=== PATIENT | female | born 2000 ===

== ENCOUNTER 2023-08-16 21:47 | Outpatient (REF) | payer OTHER, SELFPAY ==
--- OUTSIDE RECORDS SUMMARY | 2023-08-17 10:16 | XMS_ITS | CCD ---
Author Name Unknown Address [address] [place] [address] Organization [facility] Care Team Providers Care Medical Claims Manager Name Role Phone JUANS, DR SUMNER Admitting Unavailable TIMMIS, DR SUMNER Attending Unavailable TIMMIS, DR SUMNER Consulting Unavailable ZIEBER, DR DAGOBERTO Mcclain Consulting Unavailable TIMMIS, DR SUMNER Attending Unavailable TIMMIS, DR SUMNER Consulting Unavailable TIMMIS, DR SUMNER Admitting Unavailable WEST, DR JEANETTE Sy Consulting Unavailable Sg Bower Unavailable Unavailable Unavailable SHANTELLE MAE Attending Unavailable SELF, SELF Referring Unavailable DO Sg Bower Primary Care Provider MD Jaylan Salazar Attending Provider DO Sg Bower Primary Care Provider [phone] MD Derrick Kimbrough Attending Provider Jaylan Salazar Admitting Unavailable Jaylan Salazar Attending Unavailable Sg Bower Primary Care Unavailable Sg Bower Primary Care Unavailable Derrick Kimbrough Admitting Unavailable Derrick Kimbrough Attending Unavailable Allergies Allergy Classification Reported Allergen(s) Allergy Type Date of Onset Reaction(s) Facility Pollen (5 sources) bee pollen Substance Allergy [facility] Work Phone: (2 sources) bee pollen Allergy to substance (finding) [facility] Work Phone: (1 source) Unable to Assess Drug allergy (disorder) 01-11-2021 [facility] Rep[facility] Medications Completed/Discontinued Medications Medication Drug Class(es) Dates Sig (Normalized) Sig (Original) cefdinir 300 mg oral capsule (1 source) Cephalosporin Antibacterial Start: 11-25-2020 End: 02-26-2021 take 1 capsule by mouth twice daily Cefdinir 300 MG Oral Capsule TAKE 1 CAPSULE BY MOUTH TWO TIMES A DAY FOR 10 DAYS Quantity: 20 Refills: 0 Ordered: 25-Nov-2020 DO Start : 25-Nov-2020 End : 26-Feb-2021 Complete cephalexin 500 mg oral capsule (2 sources) Cephalosporin Antibacterial Start: 03-18-2021 End: 04-09-2021 take 1 capsule by mouth three times daily Cephalexin 500 MG Oral Capsule take 1 capsule by mouth three times a day for 7 days Quantity: 21 Refills: 0 Ordered: 18-Mar-2021 DO Start : 18-Mar-2021 End : 09-Apr-2021 Complete predniSONE 10 mg oral tablet (4 sources) Start: 03-20-2021 End: 04-09-2021 predniSONE 10 MG Oral Tablet TAKE 3 TABLETS FOR 3 DAYS, 2 TABLETS FOR 3 DAYS, 1 TABLET FOR 4 DAYS AND THEN STOP Quantity: 19 Refills: 0 Ordered: 20-Mar-2021 Jaylan Salazar MD Start : 20-Mar-2021 End : 09-Apr-2021 Complete Start: 11-25-2020 End: 02-26-2021 take 1 tablet by mouth twice daily predniSONE 20 MG Oral Tablet TAKE 1 TABLET BY MOUTH TWO TIMES A DAY FOR 6 DAYS Quantity: 12 Refills: 0 Ordered: 25-Nov-2020 DO Start : 25-Nov-2020 End : 26-Feb-2021 Complete Sprintec 28 0.25-35 MG-MCG Oral Tablet (7 sources) Start: 01-12-2021 Sprintec 28 0.25-35 MG-MCG Oral Tablet Quantity: 84 Refills: 0 Ordered: 12-Jan-2021 DO Start : 12-Jan-2021 Active traMADol hydrochloride 50 mg oral tablet (2 sources) Opioid Agonist Start: 03-18-2021 End: 04-09-2021 take 1 tablet by mouth every six hours as needed for pain traMADol HCl - 50 MG Oral Tablet TAKE 1 TABLET BY MOUTH EVERY SIX HOURS NEEDED FOR PAIN Quantity: 28 Refills: 0 Ordered: 18-Mar-2021 DO Start : 18-Mar-2021 End : 09-Apr-2021 Complete Problems Active Problems Problem Classification Problem Date Documented Da te Episodic/Chronic Genitourinary symptoms and ill-defined conditions (7 sources) H/O: kidney disease; Translations: [Personal history of other specified urinary system disorders] Episodic Other connective tissue disease (5 sources) Weakness of face muscles; Translations: [Facial weakness] Episodic Other hematologic conditions (7 sources) History of anemia; Translations: [Personal history of diseases of blood and blood-forming organs] Episodic Residual codes; unclassified (7 sources) H/O: respiratory disease; Translations: [Other specified personal history presenting hazards to health] Episodic Unclassified (1 source) K11.8 - Other diseases of salivary glands; Translations: [K11.8 - Other diseases of salivary glands] Onset: 03-07-2022 Past or Other Problems Problem Classification Problem Date Documented Da te Episodic/Chronic Diseases of mouth; excluding dental (12 sources) Other diseases of salivary glands; Translations: [Mass of parotid gland] Onset: 02-09-2021 Episodic Results Test Name Value Interpretation Reference Range Facility Chromosome Leuk Blood Analys cherri 09-01-2022 Chromosome Leuk Blood Normal [facility] Comment on above: Order Comment: Reaso n for Exam Family history of chromosomal abnormality Result Comment: See report. Scanned copy available in EMR. PERFORMED BY: [place] [address] PATHOLOGIST SUPERVISOR [employer] MIMI SERRANO M.D. Performed By: #### C HROM LEUK #### [facility] , CT soft tissue neck w conon 03-07-2022 CT soft tissue neck w [facility] [place] [address] CT Scan Report Signed Patient: Divya Garay MR#: [id number] 1 : 2000 Acct:[id number] Age/Sex: 22 / F ADM Date: 03/07/22 Loc: CT Room: Type: [facility] Attending Dr: Jaylan Salazar MD Copies to: Jaylan Salazar MD Ordering Provider: Jaylan Salazar MD Date of Service: 03/07/22 CT/CT soft tissue neck w con: K11.8 CT neck with contrast TECHNIQUE: Axial imaging with 2-D reconstruction. 90cc of Isovue-[address] exam was performed using one or more the following dose reduction techniques: Automated exposure control, adjustment of the MA and/or Kv according to patient size, or use of the iterative reconstruction technique. HISTORY: Follow-up of parotid mass removal one year ago. No tongue lesion is identified. The hard and soft palate are unremarkable. The nasopharynx, oropharynx and hypopharynx are unremarkable. The epiglottis is normal. No laryngeal abnormality seen. No perivertebral space abnormality identified. No parapharyngeal space abnormality identified. No vascular abnormality identified. Small jugular lymph nodes identified. Recess changes of the RIGHT parotid identified. No recurrence present. No thyroid nodule identified. CT/CT soft tissue neck w con IMPRESSION: Unremarkable postsurgical changes of the RIGHT parotid. No recurrence. No adenopathy. Impression dictated by: Warren Julian M.D.03/07/2022 4:13 PM Dictation Location: [place] [address] Transcribed By: [facility] 03/07/22 1613 Dictated By: Warren Julian DO 03/07/22 1609 Signed By: 03/07/22 1613 [facility] Established Visit (Otolaryng ology)on 02-25-2022 Established Visit (Otolaryngology) Diagnoses/Problems Parotid mass (527.8) (K11.8) Orders Blood Urea Nitrogen, Serum; Status:Active; Requested for:[id number]; Creatinine, Serum; Status:Active; Requested for:[id number]; CT Neck with Contrast; Status:Hold For - Scheduling; Requested for:[id number]; Patient taking Metformin or Derivatives? : Unknown Radiologist to Determine Optimal Study : Y What are the patient's signs and symptoms? : re-evaluate for right parotid mass Provider Impressions 22-year-old female with history of right parotid mass status post parotidectomy and fat graft. 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 Genetic testing was sent and was negative -We will get a CT scan of the neck to reassess for any mass in the surgical bed and to serve as a comparison for future scans. She will get this done locally and we will review when available Chief Complaint Follow-up History of Present IllnessPatient had a right parotidectomy on 03/18/21 Final pathology was consistent with pleomorphic adenoma. There was some in the center of the tumor that were concerning for possible mucoepidermoid carcinoma. Genetic testing was sent and was negative Patient returns for follow-up. She has not had any issues since her last visit. She has regained some sensation in her ear. She is overall doing well Review of Systems ENT and Constitutional systems have been reviewed and are negative for complaint except what is stated in the HPI and/or Past Medical History. Active Problems Facial weakness (781.94) (R29.810) Parotid mass (527.8) (K11.8) Past Medical History History of anemia (V12.3) (Z86.2) History of kidney disease (V13.09) (Z87.448) History of snoring (V15.89) (Z87.898) Surgical History No history of surgery Family History Family history of Alive and well Family history of Alive and well Social History Employed Lives with family Single Student Allergies No Known Drug Allergies Recorded By: Margarita Pop; 02/26/2021 3:22:30 PM Pollen Recorded By: Margarita Pop; 02/26/2021 3:22:30 PM Current Meds Medication NameInstruction Sprintec 28 0.25-35 MG-MCG Oral Tablet Vitals Vital Signs Recorded: [id number] 04:15PM Lqeuwaoezqu55.9 F Height5 ft 8 in Tcucnt206 lb 8 oz BMI Ohexxvjbvs62.32 kg/m2 BSA Calculated1.89 Tobacco Useb) No Falls Screening (Age 18+)b) One or more falls in the last year Pain Scale0/10 Physical Exam Well appearing individual in no acute distress. No stertor and no Stridor. Good voice. No LAD. Skin is soft and supple. Oral cavity and oropharynx are without lesions. No thyromegaly. Anterior rhinoscopy reveals normal nasal mucosa bilaterally. EAC normal AU with PRADEEP. Cranial Nerves grossly intact. Right face neck incision well-healed Results/Data Pathology 03/18: Pleomorphic adenoma, 1 lymph node negative for malignancy. In the central portion of the lesion the area of squamous metaplasia with cystic changes raises the possibility of intracapsular mucoepidermoid carcinoma. This was sent for genetic testing which returned as negative. 'Scores and Scales' Signatures Electronically signed by : Jaylan Salazar MD; Feb 28 2022 6:31AM EST (Author) Normal [employer] Tobacco Screening.on 022 Fall risk assessment b) One or more falls in the last year MG-Otolaryngo logy-[employer]* Work Phone: Tobacco use status CPHS b) No [employer]-Otolaryngo logMyshaadi.in-[employer]* Work Phone: Established Visit (Otolaryng ology)on 04-09-2021 Established Visit (Otolaryngology) Diagnoses/Problems Parotid mass (527.8) (K11.8) Provider Impressions 21-year-old female status post superficial parotidectomy and fat graft reconstruction. She had delayed onset facial weakness and was started on steroids-now resolved. Purulence from abdominal incision likely stitch abscess does not appear infected today. Discussed pathology findings with patient. Explained that even if was small foci of carcinoma it was central within the lesion and excised fully. Discussed that if she were ever to feel a mass in her neck in the future would need to arrange for evaluation given these findings. Does not necessarily need repeat imaging in the future unless there would be an area of a concern. Explained importance of self exams in the area. Recommended sunscreen to incision daily to prevent hyperpigmentation of scar. Recommended follow-up in 1 year. I personally spoke with and examined the patient. I agree with the assessment and plan. Jaylan Salazar MD Chief Complaint postop History of Present IllnessPatient had a right parotidectomy on 03/18. Postoperatively she had complete facial nerve function. On postop day 1 she noticed some slight weakness around her mouth and on postop day 2 she has some weakness around her eye. She can still close her eye. A high-dose steroid taper was sent in which she completed She states that her weakness has nearly resolved with some mild asymmetry in her smile. It completely improved almost immediately once the drain was removed and she is started on steroids. She states that on her flight back from [place] her abdominal incision started to become painful. Purulent material was expressed from the wound however it has not drained since. She is no longer have any redness or pain in the area. 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 There was some in the center of the tumor that were concerning for possible mucoepidermoid carcinoma. Genetic testing was sent and was negative Review of Systems ENT and Constitutional systems have been reviewed and are negative for complaint except what is stated in the HPI and/or Past Medical History. Active Problems Facial weakness (781.94) (R29.810) Parotid mass (527.8) (K11.8) Past Medical History History of anemia (V12.3) (Z86.2) History of kidney disease (V13.09) (Z87.448) History of snoring (V15.89) (Z87.898) Surgical History No history of surgery Family History Family history of Alive and well Family history of Alive and well Social History Employed Lives with family Single Student Allergies No Known Drug Allergies Recorded By: Margarita Pop; 02/26/2021 3:22:30 PM Pollen Recorded By: Margarita Pop; 02/26/2021 3:22:30 PM Current Meds Medication NameInstruction Sprintec 28 0.25-35 MG-MCG Oral Tablet Vitals Vital Signs Recorded: [id number] 04:44PM Jqkdvnzshsk41.6 F Height5 ft 8 in 2-20 Stature Yytfmhzebb84 % Ezkfuh022 lb 2-20 Weight Pvviindylz07 % BMI Eofbkiucen58.87 kg/m2 BMI Enuiyjwpuv60 % BSA Calculated1.84 Tobacco Useb) No Fall Screeninga) No falls within the last year Pain Scale0/10 Physical Exam incision well approximated, no sign of infection ubtle marginal mandibular nerve weakness Abdominal incision without erythema or evidence of fluid collection, healing appropriately Results/Data Surgical [id number] 01:46PMJaylan Salazar Test NameResultFlagReference Case Surgical Pathology(Report) Name DIVYA GARAY Pathologist: FERN LBACK MD Date of Procedure: 03/18/2021 Date Received: 03/18/2021 Date Reported 04/08/2021 Submitting Physician: JAYLAN SALAZAR MD Location: Other External # FINAL DIAGNOSIS RIGHT PAROTID MASS, PAROTIDECTOMY: --PLEOMORPHIC ADENOMA. SEE NOTE. --1 LYMPH NODE WITH NO EVIDENCE OF MALIGNANCY. 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 Because of this finding, the specimen was sent to [facility] for MAML2 translocation testing by FISH. Per their report (on file in the [facility] Department of Pathology), MAML2 FISH studies are negative for translocation, but results should be interpreted with caution due to the high rate of monosomy. While this finding does not entirely excluded mucoepidermoid carcinoma, the overall morphologic features and negative MAML2 results favor benign/reactive changes within the pleomorphic adenoma. The neoplasm extends within less than 1 mm of the inked margin in multiple foci, however, does not appear transected in the planes of section examined. Staff Consultants: Dr. Ghada Mohr, Dr. Francisca Shook, and Dr. Marty thompson The gross and/or microscopic findings were reviewed in conjunction with pathology resident, Mey Pena MD. Electronically Signed Out By FERN BLACK MD/KENN By the signature on this report, the individual or group listed as making the Final Interpretatio (more content not included)... Normal [employer] Tobacco Screening.on 021 Fall risk assessment a) No falls within the last year MG-Otolaryngo logy-[employer]* Work Phone: Tobacco use status [facility] b) No [employer]-Otolaryngo logy-[employer]* Work Phone: Established Visit (Otolaryng ology)on 03-21-2021 Established Visit (Otolaryngology) Diagnoses/Problems Parotid mass (527.8) (K11.8) Facial weakness (781.94) (R29.810) Provider Impressions 21-year-old female status post superficial parotidectomy and fat graft reconstruction. She had delayed onset facial weakness and was started on steroids. We discussed the expected prognosis which would be full facial nerve recovery with the majority of people recovering within 6 weeks. She will take her steroids as prescribed. She will follow up in a few weeks Chief Complaint drain removal History of Present IllnessPatient presents for drain removal.. Postoperatively she had complete pain shoulder function. On postop day 1 she noticed some slight weakness around her mouth and on postop day 2 she has some weakness around her eye. She can still close her eye. A high-dose steroid taper was sent in and she started that this morning. She has not had any other issues Review of Systems ENT and Constitutional systems have been reviewed and are negative for complaint except what is stated in the HPI and/or Past Medical History. Active Problems Facial weakness (781.94) (R29.810) Parotid mass (527.8) (K11.8) Past Medical History History of anemia (V12.3) (Z86.2) History of kidney disease (V13.09) (Z87.448) History of snoring (V15.89) (Z87.898) Surgical History No history of surgery Family History Family history of Alive and well Family history of Alive and well Social History Employed Lives with family Single Student Allergies No Known Drug Allergies Recorded By: Margarita Pop; 02/26/2021 3:22:30 PM Pollen Recorded By: Margarita Pop; 02/26/2021 3:22:30 PM Current Meds Medication NameInstruction predniSONE 10 MG Oral TabletTAKE 3 TABLETS FOR 3 DAYS, 2 TABLETS FOR 3 DAYS, 1 TABLET FOR 4 DAYS AND THEN STOP Sprintec 28 0.25-35 MG-MCG Oral Tablet Physical Exam drain removed incision well approximated, no sign of infection 3/6 facial weakness, regular 'Scores and Scales' Signatures Electronically signed by : Jaylan Salazar MD; Mar 21 2021 1:25PM EST (Author) Normal [employer] CBC AND DIFFERENTIALon 03-18 % AUTOMATED IMMATURE GRAN 0.2 % Normal 0.0 - 0.9 [facility] Comment on above: Result Comment: Luanne ture Granulocyte Count (IG) includes promyelocytes, myelocytes and metamyelocytes but does not include bands. Percent differential counts (%) should be interpreted in the context of the absolute cell counts (cells/L). Performed By: #### C BCDF #### [facility] [address] [place] [address] Basophils (Bld) [#/Vol] 0.02 10*3/uL Normal 0.00 - 0.10 [facility] Comment on above: Performed By: #### C BCDF #### [address] [address] Basophils/100 WBC (Bld) 0.3 % Normal 0.0 - 2.0 [facility] Comment on above: Performed By: #### C BCDF #### [address] [address] Eosinophils (Bld) [#/Vol] 0.09 10*3/uL Normal 0.00 - 0.70 [facility] Comment on above: Performed By: #### C BCDF #### [address] [address] Eosinophils/100 WBC (Bld) 1.5 % Normal 0.0 - 6.0 [facility] Comment on above: Performed By: #### C BCDF #### [address] [address] Erythrocyte distribution width (RBC) [Ratio] 12.7 % Normal 11.5 - 14.5 [facility] Comment on above: Performed By: #### C BCDF #### [address] [address] Hematocrit (Bld) [Volume fraction] 38.8 % Normal 36.0 - 46.0 [facility] Comment on above: Performed By: #### C BCDF #### [address] [address] Hemoglobin (Bld) [Mass/Vol] 12.8 g/dL Normal 12.0 - 16.0 [facility] Comment on above: Performed By: #### C BCDF #### [address] [address] Lymphocytes (Bld) [#/Vol] 2.13 10*3/uL Normal 1.20 - 4.80 [facility] Comment on above: Performed By: #### C BCDF #### [address] [address] Lymphocytes/100 WBC (Bld) 35.6 % Normal 13.0 - 44.0 [facility] Comment on above: Performed By: #### C BCDF #### [address] [address] MCHC (RBC) [Mass/Vol] 33.0 g/dL Normal 32.0 - 36.0 [facility] Comment on above: Performed By: #### C BCDF #### [address] [address] MCV (RBC) [Entitic vol] 90 fL Normal 80 - 100 [facility] Comment on above: Performed By: #### C BCDF #### [address] [address] Monocytes (Bld) [#/Vol] 0.72 10*3/uL Normal 0.10 - 1.00 [facility] Comment on above: Performed By: #### C BCDF #### [address] [address] Monocytes/100 WBC (Bld) 12.0 % Normal 2.0 - 10.0 [facility] Comment on above: Performed By: #### C BCDF #### [address] [address] Neutrophils (Bld) [#/Vol] 3.01 10*3/uL Normal 1.20 - 7.70 [facility] Comment on above: Performed By: #### C BCDF #### [address] [address] Neutrophils/100 WBC (Bld) 50.4 % Normal 40.0 - 80.0 [facility] Comment on above: Performed By: #### C BCDF #### [address] [address] NUCLEATED RBC 0.0 /100 WBC Normal 0.0 - 0.0 [facility] Comment on above: Performed By: #### C BCDF #### [address] [address] Platelets (Bld) [#/Vol] 306 10*3/uL Normal 150 - 450 [facility] Comment on above: Performed By: #### C BCDF #### [address] [address] RBC 4.31 x10E12/L Normal 4.00 - 5.20 [facility] Comment on above: Performed By: #### C BCDF #### [address] [address] WBC (Bld) [#/Vol] 6.0 10*3/uL Normal 4.4 - 11.3 [facility] Comment on above: Performed By: #### C BCDF #### [address] [address] COMPREHENSIVE PANELon 2020 Albumin [Mass/Vol] 4.2 g/dL Normal 3.4 - 5.0 [facility] Comment on above: Performed By: #### C MP #### [address] [address] ALP [Catalytic activity/Vol] 72 U/L Normal 33 - 110 [facility] Comment on above: Performed By: #### C MP #### [address] [address] ALT [Catalytic activity/Vol] 7 U/L Normal 7 - 45 [facility] Comment on above: Result Comment: Loretta ents treated with Sulfasalazine may generate falsely decreased results for ALT. Performed By: #### C MP #### [address] [address] Anion gap [Moles/Vol] 10 mmol/L Normal 10 - 20 [facility] Comment on above: Performed By: #### C MP #### [address] [address] AST [Catalytic activity/Vol] 12 U/L Normal 9 - 39 [facility] Comment on above: Performed By: #### C MP #### [address] [address] Bilirubin [Mass/Vol] 0.4 mg/dL Normal 0.0 - 1.2 [facility] Comment on above: Performed By: #### C MP #### [address] [address] Calcium [Mass/Vol] 9.5 mg/dL Normal 8.6 - 10.3 [facility] Comment on above: Performed By: #### C MP #### [address] [address] Chloride [Moles/Vol] 104 mmol/L Normal 98 - 107 [facility] Comment on above: Performed By: #### C MP #### [address] [address] Creatinine [Mass/Vol] 0.76 mg/dL Normal 0.50 - 1.05 [facility] Comment on above: Performed By: #### C MP #### [address] [address] GFR- AM. >60 Normal >60 [facility] Comment on above: Result Comment: CALC ULATIONS OF ESTIMATED GFR ARE PERFORMED USING THE MDRD STUDY EQUATION FOR THE IDMS-TRACEABLE CREATININE METHODS. CLIN CHEM 2007;53:766-72 Performed By: #### C MP #### [address] [address] GFR-NON AM. >60 Normal >60 [facility] Comment on above: Performed By: #### C MP #### [address] [address] Glucose [Mass/Vol] 92 mg/dL Normal 74 - 99 [facility] Comment on above: Performed By: #### C MP #### [address] [address] HCO3 (Bld) [Moles/Vol] 28 mmol/L Normal 21 - 32 [facility] Comment on above: Performed By: #### C MP #### [address] [address] Potassium [Moles/Vol] 4.1 mmol/L Normal 3.5 - 5.3 [facility] Comment on above: Performed By: #### C MP #### [address] [address] Protein [Mass/Vol] 6.8 g/dL Normal 6.4 - 8.2 [facility] Comment on above: Performed By: #### C MP #### [address] [place] [address] Sodium [Moles/Vol] 138 mmol/L Normal 136 - 145 [facility] Comment on above: Performed By: #### C MP #### [address] [place] [address] Urea nitrogen [Mass/Vol] 15 mg/dL Normal 6 - 23 [facility] Comment on above: Performed By: #### C MP #### [address] [place] [address] Complete Blood Count + Diffe sourav 03-18-2021 Basophils/100 WBC (Bld) 0.3 % 0.0 - 2.0 [employer] Work Phone: Erythrocyte distribution width (RBC) [Ratio] 12.7 % See Below [employer] Work Phone: Comment on above: Reference Range: 11. 5 - 14.5 Hematocrit (Bld) [Volume fraction] 38.8 % See Below [employer] Work Phone: Comment on above: Reference Range: 36. 0 - 46.0 Hemoglobin (Bld) [Mass/Vol] 12.8 g/dL See Below [employer] Work Phone: Comment on above: Reference Range: 12. 0 - 16.0 Lymphocytes/100 WBC (Bld) 35.6 % See Below [facility] Work Phone: Comment on above: Reference Range: 13. 0 - 44.0 MCHC (RBC) [Mass/Vol] 33.0 g/dL See Below [facility] Work Phone: Comment on above: Reference Range: 32. 0 - 36.0 MCV (RBC) [Entitic vol] 90 fL 80 - 100 [employer] Work Phone: Monocytes/100 WBC (Bld) 12.0 % 2.0 - 10.0 [facility]Otolaryngo [employer] Work Phone: Neutrophils/100 WBC (Bld) 50.4 % See Below [facility]Otolaryng[facility] [employer] Work Phone: Comment on above: Reference Range: 40. 0 - 80.0 Platelets (Bld) [#/Vol] 306 10*3/uL 150 - 450 [facility]Otolaryng[facility] [employer] Work Phone: RBC (Bld) [#/Vol] 4.31 {x10E12/L} See Below [facility] -Otolaryngo [employer] Work Phone: Comment on above: Reference Range: 4.0 0 - 5.20 WBC (Bld) [#/Vol] 6.0 10*3/uL 4.4 - 11.3 MG-Mitul laryngo [employer] Work Phone: Complete Blood Count + Differential 0.02 {x10E9/L} See Below [facility]Otol[facility] [employer] Work Phone: Comment on above: Reference Range: 0.0 0 - 0.10 Complete Blood Count + Differential 0.09 {x10E9/L} See Below [facility]Otol[facility] [employer] Work Phone: Comment on above: Reference Range: 0.0 0 - 0.70 Complete Blood Count + Differential 0.72 {x10E9/L} See Below [facility]Otol[facility] [employer] Work Phone: Comment on above: Reference Range: 0.1 0 - 1.00 Complete Blood Count + Differential 2.13 {x10E9/L} See Below [facility]Otolaryng[facility] [employer] Work Phone: Comment on above: Reference Range: 1.2 0 - 4.80 Complete Blood Count + Differential 3.01 {x10E9/L} See Below MG-Otolaryngo [employer] Work Phone: Comment on above: Reference Range: 1.2 0 - 7.70 Complete Blood Count + Differential 1.5 % 0.0 - 6.0 MG-Otolaryngo [employer] Work Phone: Complete Blood Count + Differential 0.2 % 0.0 - 0.9 [employer]OtolarynOmmvenStrobe Work Phone: Comment on above: Immature Granulocyte Count (IG) includes promyelocytes, myelocytes and metamyelocytes but does not include bands. Percent differential counts (%) should be interpreted in the context of the absolute cell counts (cells/L). Complete Blood Count + Differential 0.0 {/100_WBC} 0.0 - 0.0 MG-Otolaryn [employer] Work Phone: HCG,URINEon 03-18-2021 Beta HCG ( test) Ql (U) Negative Normal Negative [facility] Comment on above: Performed By: #### H CGU #### [facility] [address] [place] [address] Laboratory - Chemistry and C hemistry - challengeon 03-18-2021 Albumin BCP dye [Mass/Vol] 4.2 g/dL 3.4 - 5.0 [facility]-[place] EnterprisesspiritwoodMithridion [employer] Work Phone: ALP [Catalytic activity/Vol] 72 U/L 33 - 110 MG-OtSofar Sounds[employer] Work Phone: ALT With P-5'-P [Catalytic activity/Vol] 7 U/L 7 - 45 MG-OtolarynYozio Work Phone: Comment on above: Patients treated wit h Sulfasalazine may generate falsely decreased results for ALT. Anion gap [Moles/Vol] 10 mmol/L 10 - 20 MG-Otolaryngo [employer] Work Phone: AST With P-5'-P [Catalytic activity/Vol] 12 U/L 9 - 39 MG-OtolarynYozio Work Phone: [phone] Bilirubin [Mass/Vol] 0.4 mg/dL 0.0 - 1.2 MG-Otolaryngo logy[employer]* Work Phone: [phone] Calcium [Mass/Vol] 9.5 mg/dL 8.6 - 10.3 MG-Mitul laryngo [employer] Work Phone: [phone] Chloride [Moles/Vol] 104 mmol/L 98 - 107 MG-Otolaryngo [employer] Work Phone: CO2 [Moles/Vol] 28 mmol/L 21 - 32 MG-Otolar yngo [employer] Work Phone: Creatinine [Mass/Vol] 0.76 mg/dL See Below MG-Otolaryngo [employer] Work Phone: Comment on above: Reference Range: 0.5 0 - 1.05 Glucose [Mass/Vol] 92 mg/dL 74 - 99 MG-Kell laryngo [employer] Work Phone: Potassium [Moles/Vol] 4.1 mmol/L 3.5 - 5.3 MG-Otolaryngo [employer] Work Phone: Protein [Mass/Vol] 6.8 g/dL 6.4 - 8.2 MG-Mitul laryngo [employer] Work Phone: Sodium [Moles/Vol] 138 mmol/L 136 - 145 MG-Kell laryngo [employer] Work Phone: Urea nitrogen [Mass/Vol] 15 mg/dL 6 - 23 MG-Otolaryngo [employer] Work Phone: No Panel Informationon 03-18 MG-Otolaryngo [employer] Work Phone: >60 >60 MG-Otolaryngo [employer] Work Phone: Comment on above: CALCULATIONS OF CHRIS MATED GFR ARE PERFORMED USING THE MDRD STUDY EQUATION FOR THE IDMS-TRACEABLE CREATININE METHODS. CLIN CHEM 2007;53:766-72 Order Reconciliationon 03-18 Order Reconciliation Page 1 Discharge Reconciliation Document Reconciliation Type: Discharge requested on behalf of Stephanie Ahumada (Resident) done by Stephanie Ahumada ( (Resident)) Discharge - Reconciliation: 18-Mar-2021 14:43 by: Stephanie Ahumada ( (Resident)) Home Medications EnteredHOME MEDICATIONS AT DISCHARGE DateReconciliation Comment/ Additional Information Sprintec 0.25 mg-35 mcg oral tablet 1 tab(s) orally once a day 18-Mar-2021 09:10 Sprintec 0.25 mg-35 mcg oral tablet 1 tab(s) orally once a day 18-Mar-2021 09:10 Sprintec 0.25 mg-35 mcg oral tablet is continued as Sprintec 0.25 mg-35 mcg oral tablet Current OrdersDateHOME MEDICATIONS AT DISCHARGE DateReconciliation Comment/ Additional Information fentaNYL Injectable (SUBLIMAZE)DOSE = 50 microgram(s) IntraVenous Push Every 5 Minutes, PRN Pain - Mod (4-6) (PACU) if unable to take oralClinician Notes: Maribel-operative order ONLYMax total of 200 micrograms regardless of dose. 18-Mar-2021 11:22 fentaNYL Injectable is not required HYDROmorphone Injectable (DILAUDID)DOSE = 0.5 mg IntraVenous Push Every 5 Minutes, PRN Pain - Severe (7-10) (PACU)Clinician Notes: Maribel-operative order ONLYMax total of 4 mg regardless of dose. 18-Mar-2021 11:22 HYDROmorphone Injectable is not required Lactated Ringers Infusion IV Bag Volume = 1,000 mL Run at: 100 mL/hr IntraVenous Clinician Notes: Maribel-operative order ONLY 18-Mar-2021 11:22 Lactated Ringers Infusion is not required Ondansetron Injectable (ZOFRAN)DOSE = 4 mg IntraVenous Push Once, PRN PONV, first lineClinician Notes: Maribel-operative order ONLY 18-Mar-2021 11:22 Ondansetron Injectable is not required oxyCODONE Immediate Release Tablet (OXYIR, ROXICODONE)DOSE = 5 mg Oral Every 4 Hours, PRN Pain - Mild (1-3) (PACU) when able to take OralClinician Notes: Maribel-operative order ONLY 18-Mar-2021 11:22 oxyCODONE Immediate Release is not required Promethazine IV Piggy Back in Sodium Chloride 0.9% 50 mL (PHENERGAN)DOSE = 6.25 mg Once, PRN persistent PONV if first line ineffectiveRecommended Infusion Time: 15 minute(s)Clinician Notes: Maribel-operative order ONLY 18-Mar-2021 11:22 Promethazine IV Piggy Back is not required Home Medications Added During Discharge Reconciliation Activity as Tolerated 18-Mar-2021, Routine, Assistance Level: None, Restrictions: None, Limit your activities and rest today. Additional Patient Instructions Do not consume alcoholic beverages for 24 hours. Additional Patient Instructions Do not engage in sports, heavy work or lifting. Additional Patient Instructions Do not make important decisions or sign any important documents for the next 24 hours. Additional Patient Instructions Do not remove steri strips from your abdomen, they will fall off on their own. Additional Patient Instructions Do not smoke for 24 hours. Additional Patient Instructions It is recommended that a responsible adult remain with you for the next 24 hours as you may be light headed/dizzy. Additional Patient Instructions Keep facial/neck incision dry and clean. Apply vaseline twice daily until healed Additional Patient Instructions You have a KARIN drain in place. To empty, remove cap and empty into cannister. Squeeze bulb and replace cap. Call Physician For: excessive bleeding (slow general oozing that completely soaks dressing or fresh bright red bleeding) or bleeding that will not stop. Apply pressure to the area and elevate. Call Physician For: persistant nausea and/or vomiting Over 24 hours Call Physician For: signs and sypmtoms of infection Increased redness or swelling at incision site, increased pain/tenderness at surgical site, increased temperature greater than 100 degress, increasing and/or progressive drainage from surgical site, and/or unusual odor from surgical site. Diet Regular Discharge Discharge Diagnosis< K11.8 Parotid mass Discharge Provider, Jaylan Salazar Discharge Disposition : .Home Condition at Discharge: Satisfactory Discharge Communication Instructions for Nursing Only: Remove IV prior to discharge from hospital. Do not remove any midline, if present, without an order from the provider. Discharge Instructions - PHR After your discharge from the hospital, two Summary of Care Documents will be available online in your Personal Health Record (PHR). 1.Consolidated-Clinical Document Architecture (C-CDA) Patient Discharge Summary This document is a summary of your hospital stay to be kept for your reference.2.C-CDA Visit Summary This document is a summary of your hospital stay to be shared with your follow-up providers (doctor, solo truck driver, physical therapist, etc.). Follow Up with Dr. Salazar in We will call you to schedule your follow up for drain removal. Keflex 500 mg oral capsule 1 cap(s) orally 3 times a day May not drive or operate motor vehicles for 24 hours or while taking narcotics May not return to (more content not included)... Normal [facility] Patient Profile - Preop v2on 03-18-2021 Patient Profile - Preop v2 Profile: Initial Info: How to be Addressedkarlie Spoken Language PreferredEnglish Source of Informationpatient Stated Reason for Admissionright parotoidectomy Primary Contact Name and [phone] Limitations on Visitors/Phone Callsnone Patient Belongingsnone Medications Brought to Hospitalno General Health: Weight in kg70 kilogram(s) Weight in wit135.3 pound(s) Weight Methodstated Height in feet5 feet Height in inches8 inch(es) Height in cm172.7 centimeter(s) Height Methodstated BMI (kg/m2)23.47 square meter Patient or Family Member Reaction to Anesthesianever had anesthesia Blood Avoidance/Restrictionsnone Previous Transfusion Reactionno Health Mgmt: Symptoms/Conditions Managed at Homecardiovascular Are You no Are You Currently Breastfeedingno Cardiovascular Symptoms/Conditions Commentsyncopy Barriers to Managing Healthnone Relationship/Environ: Living Arrangementshouse Lives Withparent(s) Resource/Environmental Concernsnone [facility] Anticipated at Transitionnone Substance: Smoking Statusnever smoker Alcohol Usedenies Drug Usedenies Drug 2 Usedenies Risk Screens: COVID-19 Screening Completedno exposure or symptoms Travel or ExposureNO travel to International locations in the past 30 days Advance Directive/DNRno During the past month, have you often been bothered by feeling down, depressed or hopelessno During the past month, have you often had little interest or pleasure in doing thingsno Have you had any thoughts of harming anyone elseno Risk Screen Not Applicable/Able to Answerable to be screened In the Past Month: Have you wished you were or could go to sleep and not wake upno In the Past Month: Have you had any actual thoughts of killing yourselfno Lifetime: Have you ever done, started to do, or prepared to do anything to end your lifeno Are you or have you been threatened or abused physically,emotionally or sexually abused by anyoneno Do you feel UNSAFE going back to the place you are livingno Patient is Able to be Assessed for Learningyes Factors Influencing Readiness to Learnacuteness of illness Factors that Impact Ability to Learnnone Devices/Methods Used to Communicatenone Learning Preferencesverbal instruction Cultural Considerationsnone Developmental Considerationsnone Hinduism Considerationsnone Other learner availableno Falls RiskPatient location auto qualifies him/her for HIGH RISK. Are there any cultural, spiritual, mosque practices/values/needs that are important for us to knowno Do you want a visit/item from Pastoral Careno Would you like your Clerical Support/Software Test Engineer notifiedno Pain Scalenumerical 0-10 Pain Scale Educationteaching provided Current Pain Level0 = None Acceptable Pain Level3 = Mild Expression of Pain (nonverbal)none Lifestyle Changes/Adaptations in Response to Painno change Barriers to Reporting Painnone Chronic Painno Information Review: Allergies, Home Meds and Significant Events have been Reviewed and Verified with Patient/Familyyes Allergy, Intolerance, Adverse Event: Allergies: No Known Allergies: Active Electronic Signatures: Silke Marquez (STAFF N) (Signed 18-Mar-2021 09:20) Authored: Initial Info, General Health, Health Mgmt, Relationship/Environ, Substance, Risk Screens, Additional Information Last Updated: 18-Mar-2021 09:20 by Silke Marquez (STAFF N) [facility] Preop Checkliston 03-18-2021 Preop Checklist Preop Checklist: Preop Checklist: Arrival [id number] Arrival Time08:40 Procedure Typeright parotidectomy NPO [id number] 23:00 ID Band Onyes Allergy Bandno known allergies Consent Signedyes H&P Completeyes Anesthesia Assessment Completedpending EKG Performedyes Chest X-Ray Performednot ordered HCG Urine TestUrine Sent Chlorhexadine Bath Givennot applicable Nasal Antiseptic Appliednot applicable Hair Washedyes Soap and water bath with hair shampoo the night before surgeryyes Hat placed on prior to transportnot applicable SCD's Appliedyes HARLAN Hose Appliednot ordered Denturesnot applicable Prostheticsnot applicable Hearing Aidsnot applicable Valuables Securednot applicable Glasses / Contactsnot applicable Bowel Prepno Cardiovascular Assessment: Apicalregular Radial Pulsespalpable Pedal Pulsespalpable Extremitieswarm Respiratory Assessment: Respirationsunlabored Air Exchangeequal Breath Soundsclear Neurological Assessment: Level of Consciousnessalert Mobilitymoves all extremities Able to Express Selfyes Age Appropriateyes Emotional Statuscalm Skin Assessment: Skin Site(s) with Current Compromisenone Preop Education: Surgical Site Infection Preventionyes Pain Scales and Managementyes Language / Communication: Language / CommunicationEnglish Electronic Signatures: Silke Marquez (STAFF N) (Signed 18-Mar-2021 09:22) Authored: Preop Checklist Last Updated: 18-Mar-2021 09:22 by Silke Marquez (STAFF N) Normal [facility] Surgical Pathology Depar tmenton 03-18-[address] [facility] Surgical Pathology Department Name DIVYA GARAY Pathologist: FERN BLACK MD Date of Procedure: 03/18/2021 Date Received: 03/18/2021 Date Reported 04/08/2021 Submitting Physician: JAYLAN SALAZAR MD Location: Other External # FINAL DIAGNOSIS RIGHT PAROTID MASS, PAROTIDECTOMY: --PLEOMORPHIC ADENOMA. SEE NOTE. --1 LYMPH NODE WITH NO EVIDENCE OF MALIGNANCY. 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 Because of this finding, the specimen was sent to [facility] for MAML2 translocation testing by FISH. Per their report (on file in the [facility] Department of Pathology), MAML2 FISH studies are negative for translocation, but results should be interpreted with caution due to the high rate of monosomy. While this finding does not entirely excluded mucoepidermoid carcinoma, the overall morphologic features and negative MAML2 results favor benign/reactive changes within the pleomorphic adenoma. The neoplasm extends within less than 1 mm of the inked margin in multiple foci, however, does not appear transected in the planes of section examined. Staff Consultants: Dr. Ghada Mohr, Dr. Francisca Shook, and Dr. Marty thompson The gross and/or microscopic findings were reviewed in conjunction with pathology resident, Mey Pena MD. Electronically Signed Out By FERN BLACK MD/KENN By the signature on this report, the individual or group listed as making the Final Interpretation/Diagnosis certifies that they have reviewed this case. Clinical History: Physician Contact Number: [id number] Fixative (A): Formalin Clinical Diagnosis History K11.8 Other specified diseases of the salivary glands Specimens Submitted As: A: RIGHT PAROTID MASS Gross Description: Received in formalin, labeled with the patient's name, hospital number, and right parotid mass , is an unoriented lobulated segment of dark brown, soft tissue measuring 4.0 x 3.2 x 2.8 cm. The specimen is inked black and serially sectioned to reveal a well circumscribed, white, lobulated, mass measuring 3.5 x 2.2 x 1.8 cm which extends to within 0.1 cm of the nearest margin. The specimen is entirely submitted in 13 cassettes. JDC/MY jdc/03/19/2021 [facility] Department of Pathology [address] [place] [address] Normal [facility] Comment on above: Performed By: #### U HCS #### [facility] Surgical Pathology Department [address] [place] [address] Urine Teston 03-18 HCG ( test) Ql (U) Negative Negative -Otolaryngo [employer]* Work Phone: CORONAVIRUS 2019, SCREEN ASY MPTOMATICon 03-16-2021 SARS-CoV-2 (COVID-19) RNA OVIDIO+probe Ql (Unsp spec) Not detected Normal Not Detected [facility] Comment on above: Result Comment: . This assay is designed to detect the N, ORF1ab and/or S genes of SARS-CoV-2 via nucleic acid amplification. A Negative (NOT DETECTED) result does not preclude 2019-nCoV infection since the adequacy of sample collection and/or low viral burden may result in presence of viral nucleic acids below the clinical sensitivity of this test method. Negative (NOT DETECTED) result should not be used as the sole basis for treatment or other patient management decisions. Rather negative results should be combined with clinical observations, patient history, and epidemiological information to make patient management decisions. Fact sheet for providers: https://www.fda.gov/media/299725/download Fact sheet for patients: https://www.fda.gov/media/388486/download This test has received FDA Emergency Use Authorization (EUA) and has been verified by [facility] ([facility]). This test is only authorized for the duration of time that circumstances exist to justify the authorization of the emergency use of in vitro diagnostic tests for the detection of SARS-CoV-2 virus and/or diagnosis of COVID-19 infection under section 564(b)(1) of the Act, 21 U.S.C. 360bbb-3(b)(1), unless the authorization is terminated or revoked sooner. [facility] is certified under CLIA-88 as qualified to perform high complexity testing. Testing is performed in the [facility] laboratories located at [address] [place] [address]. Performed By: #### C OVSC #### [address] [place] [address] Covid 19 Resultson 1 SARS-CoV-2 (COVID-19) RNA OVIDIO+probe Ql (Unsp spec) NEGATIVE COVID-19 Test Coronaviruses are common world-wide and are the cause of many common colds. SARS-COV2 is a new coronavirus that began circulating worldwide in 2019 so we are calling it COVID-19. It has been estimated that four out of five patients with COVID-19 will recover at home without the need for medical attention. Symptoms of COVID-19 may include cough, fever, shortness of breath, loss of taste or smell and other flu-like symptoms including chills, sore muscles, sore throat, and headache. Severe illness is more common in older people and people with other health problems such as high blood pressure, obesity, and immune system problems. If the test is positive, you have COVID-19. You will be contacted by the ordering physicians office and instructed to remain on home isolation, in accordance with CDC guidelines. You may also be contacted by the [facility] to see if any of your close contacts may have been exposed to the virus and need to quarantine. If the test is negative, you likely do not have COVID-19 at this time, but you still may have a different illness that can spread to other people (like Influenza, or the Flu) and could still be at risk for getting COVID-19. We recommend that you stay away from other people to limit the spread of illness until your symptoms are improving and you are fever-free for 24 hours without the use of fever lowering medications such as acetaminophen or ibuprofen. No test is 100% accurate so if you are still concerned you may have COVID-19, talk to your doctor about the need to continue to stay away from others. Medicines Unless your provider told you not to use the following: Acetaminophen (Tylenol and others) is generally safe. Anti-inflammatory medications, such as Ibuprofen (Advil or Motrin) or Naproxen (Aleve) can also be used. Wsev-aty-tiguhjs cough and cold medicines can be used according to the instructions on the package. Some cryy-lkg-ijywgjj medicines also contain acetaminophen. Make sure you are not taking more than your recommended dose. For those not hospitalized, there is no specific treatment available for this illness. Antibiotics do not treat Coronaviruses. Follow-Up Follow up with your doctor by scheduling a virtual visit or consider follow-up at one of our urgent care fever clinics. If you are having difficulty breathing, or are very weak and having difficulty standing, this is a medical emergency. Call 911 or have someone take you to the nearest emergency room immediately. If possible, wear a facemask. Additional guidance from the CDC for patients who tested POSITIVE for COVID-19 How to isolate: Isolate yourself in a specific room at home and limit your contact with others. Use a separate bathroom from other members of the household, when possible. Leave home only to get essential medical care. Do not go to work, school or public areas. Avoid using public transportation, ride-sharing, or taxis. Restrict contact with pets and other animals. If you must care for your pet or be around animals while you are sick, wash your hands before and after your interaction and wear a facemask. Make sure that shared spaces in the home have good airflow, such as by an air conditioner or an opened window, weather permitting. Personal Hygiene Procedures: Wear a face mask when in the same room as other people or pets. If a face mask interferes with your breathing, others should wear a mask when sharing space with you. Frequent hand-washing: wash your hands with soap and water for at least 20 seconds. If soap and water are not available, use alcohol-based hand lpn instructor. Avoid touching your eyes, nose, and mouth with unwashed hands. Household Hygiene Procedures: Avoid sharing personal household items such as dishes, glassware, cups, eating utensils, towels or bedding with other people or pets in your home. After use, these items should be washed with soap and hot water. Disinfect all high-touch surfaces every day with antibacterial cleaning solutions such as Lysol wipes, bleach, cleansers, etc. High-touch surfaces include tabletops, doorknobs, bathroom fixtures, toilets, phones, keyboards, tablets and bedside tables. Immediately clean any surfaces that may have blood, poop or body fluids on them, using antibacterial cleaning solutions such as Lysol wipes, bleach, cleansers, etc. If clothing or bedding come into contact with blood, poop or body fluids, they should be washed immediately. Follow the directions on the laundry detergent and clothing labels but hot water is recommended when possible. Stopping home isolation precautions: If possible, consult your doctor before stopping home isolation precautions. According to the CDC, you can discontinue home isolation precautions when you have met both of these criteria: Your fever and respiratory symptoms have been gone for 24 rosy (more content not included)... Normal [facility] CORONAVIRUS 2019, SCREEN ASY MPTOMATICon 03-15-2021 Lab Specimen Source Nasal, Nasopharyngeal Normal [facility] Comment on above: Performed By: #### C OVSC #### [facility] [address] [place] [address] Coronavirus 2019 RNA by PCR, Screening Asymptomticon 03-15-2021 Coronavirus 2019 RNA by PCR, Screening Asymptomtic Not detected Normal See Below -[facility] Work Phone: Comment on above: SOURCE: Nasal, Nasop haryngealReference Range: Not Detected.This assay is designed to detect the N, ORF1ab and/or S genes of SARS-CoV-2 via nucleic acid amplification. A Negative (NOT DETECTED) result does not preclude 2019-nCoV infection since the adequacy of sample collection and/or low viral burden may result in presence of viral nucleic acids below the clinical sensitivity of this test method. Negative (NOT DETECTED) result should not be used as the sole basis for treatment or other patient management decisions. Rather negative results should be combined with clinical observations, patient history, and epidemiological information to make patient management decisions.Fact sheet for providers: https://www.fda.gov/media/963026/downloadFact sheet for patients: https://www.fda.gov/media/612417/downloadThis test has received FDA Emergency Use Authorization (EUA) and has been verified by [facility] ([facility]). This test is only authorized for the duration of time that circumstances exist to justify the authorization of the emergency use of in vitro diagnostic tests for the detection of SARS-CoV-2 virus and/or diagnosis of COVID-19 infection under section 564(b)(1) of the Act, 21 U.S.C. 360bbb-3(b)(1), unless the authorization is terminated or revoked sooner. [facility] is certified under CLIA-88 as qualified to perform high complexity testing. Testing is performed in the [facility] laboratories located at [address] [place] [address]. Tobacco Screening.on 021 Fall risk assessment a) No falls within the last year [facility] Work Phone: Tobacco use status [facility] b) No [facility] Work Phone: US FINE NEEDLE ASP EXPon US FINE NEEDLE ASP EXP Begin Addendum #1 COLLECTED DATE/TIME: 02/09/2021 08:58 EDT Final Diagnosis Report for [facility] [place] [place] (A/B) RIGHT PAROTID MASS; FINE NEEDLE ASPIRATION: - BENIGN NEOPLASM, PLEOMORPHIC ADENOMA. 02/12/[address] Erickson. 02/15/2021 verified with Jennifer that report was present in office. Original Report EXAMINATION: US FINE NEEDLE ASP EXP HISTORY: Mass of right parotid gland COMPARISON: Ultrasound neck 02/02/2021, CT neck 02/02/2021 TECHNIQUE: After obtaining informed consent, ultrasound-guided fine needle aspiration was performed in the usual sterile manner. FINDINGS: IMAGING: Ultrasound. BIOPSY NEEDLE: 25-gauge Senokot 3 separate passes LOCATION: Right parotid gland hypoechoic solid mass. SPECIMEN TYPE: Cellular tissue. LOCAL ANESTHETIC: Buffered Xylocaine. COMPLICATIONS: None. LABORATORY: Prepared slide smears and washings for cell block evaluation. OTHER: Negative. PATHOLOGY: Pending. An addendum will be added when results are available. IMPRESSION: 1. Uneventful ultrasound guided fine needle aspiration (FNA). 2. Pathology results are pending. Normal [facility] CT NECK ST W CONon CT NECK ST W CON EXAMINATION: CT NECK ST W CON HISTORY: Disorder of salivary gland COMPARISON: Ultrasound same day TECHNIQUE: Axial, Coronal, and Sagittal CT images created with IV contrast. Dose reduction techniques were achieved by using automated exposure control and/or adjustment of mA and/or kV according to patient size and/or use of iterative reconstruction technique. FINDINGS: NASOPHARYNX: No asymmetry of the fossae of Rosenmuller and torus tubarius. ORAL CAVITY: No visible mass. OROPHARYNX: No asymmetry of the facial and lingual tonsils. HYPOPHARYNX: No mass or other visible lesion. LARYNX: No mass or asymmetry of the vocal cords. SINUSES: Soft tissue opacification of the left sphenoid sinus. Minimal mucoperiosteal thickening left maxillary sinus. NECK GLADS: 2.2 x 2.1 x 3.2 cm heterogeneous enhancing right parotid mass, poorly defined and inseparable from the surrounding parotid tissue. Normal left parotid gland. Normal bilateral submandibular and thyroid glands. LYMPH NODES: Increased number of normal and borderline enlarged lymph nodes, the largest on the right is adjacent to the inferior margin of the parotid gland measuring 1.4 x 0.9 cm VASCULATURE: No suspicious abnormality. BONES: No significant osseous lesions. OTHER: No additional imaging findings. IMPRESSION: 2.2 x 2.1 x 3.2 cm heterogeneously enhancing right parotid mass of unknown etiology. Ultrasound-guided fine-needle aspiration could be performed for histopathologic diagnosis Electronically authenticated by: JEANETTE SOLARES Date: 2021-02-02 16:48 Normal [facility] US ST HEAD_NECKon 02-02-[address] HEAD_NECK EXAM: US ST HEAD_NEC K HISTORY: Disorder of salivary gland COMPARISON: None. TECHNIQUE: Grayscale and color ultrasound FINDINGS: Lobular hypoechogenic 3.3 x 2.5 x 2.6 cm mass is identified in the right parotid gland. This lesion demonstrates slight hypervascularity to the surrounding parotid gland IMPRESSION: Slightly hypervascular hypoechogenic 3.3 cm right parotid gland mass Electronically authenticated by: JEANETTE SOLARES Date: 2021-02-02 15:06 Normal [facility] Vital Signs Date Time Vital Sign Value Performing Clinician Facility 02-25-2022 16:15-0400 Body height 172.72 cm Sg Bower [facility] Work Phone: 02-25-2022 16:15-0400 Body mass index (BMI) [Ratio] 25.32 kg/m2 Sg Bower [facility] Work Phone: 02-25-2022 16:15-0400 Body surface area Derived from formula 1.89 m2 Sg Bower [facility] Work Phone: 02-25-2022 16:15-0400 Body temperature 98.9 [degF] Sg Bower Work Phone: [facility] Work Phone: 02-25-2022 16:15-0400 Body weight 75.52 kg Sg Bower Work Phone: [facility] Work Phone: 02-25-2022 16:15-0400 0 1 Houstondavid Bower Work Phone: [facility] Work Phone: Comment on above: [facility] 04-09-2021 16:44-0400 Body height 172.72 cm Sg Bower Work Phone: [facility] Work Phone: 04-09-2021 16:44-0400 Body mass index (BMI) [Ratio] 23.87 kg/m2 Sg Bower Work Phone: [facility] Work Phone: 04-09-2021 16:44-0400 Body surface area Derived from formula 1.84 m2 Sg Bower Work Phone: [facility] Work Phone: 04-09-2021 16:44-0400 Body temperature 97.6 [degF] Sg Bower Work Phone: [facility] Work Phone: 04-09-2021 16:44-0400 Body weight 71.22 kg Sg Bower Work Phone: [facility] Work Phone: 04-09-2021 16:44-0400 92 1 Sg Bower Work Phone: [facility] Work Phone: Comment on above: 2-20_SPerc 04-09-2021 16:44-0400 86 1 Sg Bower Work Phone: [facility] Work Phone: Comment on above: 2-20_WPerc 04-09-2021 16:44-0400 72 1 Sg Bower Work Phone: [facility] Work Phone: Comment on above: BMIPerc 04-09-2021 16:44-0400 0 1 Sg Bower Work Phone: [facility] Work Phone: Comment on above: [facility] 02-26-2021 15:22-0400 Body height 172.72 cm Sg Bower Work Phone: [facility] Work Phone: 02-26-2021 15:22-0400 Body mass index (BMI) [Ratio] 24.02 kg/m2 Sg Bower Work Phone: [facility] Work Phone: 02-26-2021 15:22-0400 Body surface area Derived from formula 1.85 m2 Sg Bower Work Phone: [facility] Work Phone: 02-26-2021 15:22-0400 Body temperature 97.1 [degF] Sg Bower Work Phone: [facility] Work Phone: 02-26-2021 15:22-0400 Body weight 71.67 kg Sg Bower Work Phone: [facility] Work Phone: 02-26-2021 15:22-0400 93 1 Sg Bower Work Phone: [facility] Work Phone: Comment on above: 2-20_SPerc 02-26-2021 15:22-0400 87 1 Sg Bower Work Phone: [facility] Work Phone: Comment on above: 2-20_WPerc 02-26-2021 15:0 74 1 Sg Bower Work Phone: [facility] Work Phone: Comment on above: BMIPerc 02-26-2021 15:0 0 1 Sg Bower Work Phone: [facility] Work Phone: Comment on above: [facility] Encounters Encounter Date Encounter Type Care Provider Facility Start: 09-01-2022 End: 09-01-2022 ambulatory Sg Sathish Facility:[facility] Start: 09-01-2022 End: 09-01-2022 ambulatory DO Sg Bower Work Phone: [facility] Work Phone: Start: 09-01-2022 End: 09-01-2022 Patient encounter procedure DO Sg Bower Work Phone: [facility] [place] Work Phone: Start: 03-07-2022 End: 03-07-2022 ambulatory Jaylan Salazar Facility:[facility] Start: 03-07-2022 End: 03-07-2022 Patient encounter procedure DO Sg Bower Work Phone: [facility]-CT Scan [facility] [place] Start: 02-25-2022 Office outpatient vi sit 15 minutes Sg Bower Work Phone: [facility] Work Phone: Start: 02-25-2022 Patient encounter procedure Sg Bower Work Phone: WJ[facility]Ldqpcsiasqzlps[facility] [place] Work Phone: Start: 04-14-2021 ambulatory SHANTELLE MAE [facility] ity:[facility] Start: 04-09-2021 Patient encounter procedure Sg Bower Work Phone: U[facility]Thbaxoxehpxfbe[facility] [place] Work Phone: Start: 04-09-2021 Postop follow up vis it related to original px Sg Pink Sathish Work Phone: EW-Zunvofqyhblkwa-[facility]vg [place] Work Phone: Start: 03-20-2021 AUDIT Sg Lafleur ol Work Phone: QC-Xltdrvtunooqoq-[facility]cy [place] Work Phone: Start: 03-18-2021 [facility], Provider: Jaylan Salazar, Status: Pen, Time: 11:00 AM Sg Bower Work Phone: JQ-Kzbcieodokgqxg-[place]xy [place] Work Phone: Start: 03-17-2021 Chart Update Sg Lafleur ol Work Phone: CO-Hwmhsbalobfqeq-Zmw [place] Work Phone: Start: 02-26-2021 Office consultation new/estab patient 60 min Sg Bower Work Phone: DU-Helsifrmbklqhz-Rgy [place] Work Phone: Start: 02-09-2021 End: 02-09-[address] BURAK ERICKSON Facility:[facility] Start: 02-02-2021 End: 02-03-[address] BURAK ERICKSON Facility:[facility] Procedures Date Procedure Procedure Detail Performing Clinician Start: 03-07-2022 CT of soft tissues o f neck with contrast DO Sg Bower Work Phone: No history of surgery Sg Pink [place] Work Phone: Plan of Treatment Date Care Activity Detail Author Start: 03-25-2022 [facility]UV, Provider: Jaylan Salazar, Status: Pen, Time: 4:30 PM [facility]UV, Provider: Jaylan Salazar, Status: Pen, Time: 4:30 PM ZF-[facility]axhczlfzleblb-[facility] [place] Work Phone: Karyotype [Identifie r] in Unspecified specimen [facility] Payers Date Payer Category Payer Unknown [id number] 2022 Self-pay [id number] 2020 Unknown [id number] 2002 Unknown [id number] 2002 Unknown [id number] 1979 Unknown [id number] 1959 Unknown [id number] Private Health Insurance [employer] [facility] [id number] Unknown [employer] Unknown [id number] Unknown [id number] Social History Date Type Detail Facility Employed Employed -[employer] Work Phone: Start: 2002 Sex Assigned At Female F [facility] Clinical Note 03-18-2021 Note Date & Type Note Facility 03-18-2021 Note Post Operative Note: PreOp Diagnosis: right parotid mass Post-Procedure Diagnosis: same Procedure: 1. Right superficial parotidectomy with nerve monitoring 2. Abdominal fat graft Surgeon: Jaylan Salazar MD Resident/Fellow/Other Stress Engineer: Stephanie Ahumada MD Anesthesia: General Estimated Blood Loss (mL): 20cc Specimen: yes Complications: None Findings: right parotid mass measuring 3x5 cm Patient Returned To/Condition: PACU, stable Drains and/or Catheters: 7 fr flat drain Operative Report Dictated: Dictation: not applicable - note contains Operative Report Operative Report: Operative indications: 21 yo female with right parotid mass that was consistent with pleomorphic adenoma on FNA. The above procedure was recommended. We discussed risks of bleeding, infection, numbness, facial paralysis. We also discussed potential abdominal fat graft if there is a deformity from volume loss. Risks/benefits/alternatives were discussed with the patient and the patient opted to proceed. Informed consent was obtained and the patient was taken to the OR. Procedure in detail: The patient was seen and identified in the preoperative holding area and at that time any further questions were answered. The patient was escorted to the operating suite, transferred to the operating table in a supine position. A huddle was taken, verifying the correct patient, surgical site, and procedure. The anesthesia team provided general anesthesia. The patient was turned 90 degrees towards the ENT team. The facial nerve monitor was connected and checked for accuracy. No long-term muscle relaxants were used. A modified Heraclio incision was planned to overlie the right face and marked with a marker. This was then injected with 1:100,000 lidocaine with epinephrine. We also prepped the lower left abdomen for possible fat graft. Following this, the patient was prepped and draped in the usual fashion. Prior to the start of the case, a pre-incision pause was taken to again verify the correct patient, procedure and surgical site. Preoperative antibiotics were administered and documented. A 15-blade scalpel was used to incise the skin. Skin hooks were used for retraction. Bovie electrocautery was used and the incision taken down to the level of the SMAS overlying the parotid tissue. This was done first in the preauricular area and then we extended our incision down into the neck. At this point, we then raised an anteriorly based skin flap overlying the parotid fascia. This was done to the anterior most extent of the mass. Following this, we then developed a plane medial to the sternocleidomastoid up to the mastoid tip. This allowed us to visualize the posterior belly of the digastric, which was then followed towards the mastoid tip. This set our depth of dissection. A plane was developed between the parotid and the perichondrium of the tragus, and this was taken down to the level of the styloid base using blunt and sharp dissection. The parotid was retracted anteriorly with malleable retractors. A Roberts was used to gently divide the tissue overlying the facial nerve between the styloid base and digastric. This was done with the Harmonic, blunt and sharp dissection. In this way, careful dissection did reveal the facial nerve. We did use our styloid base as our reference point. Once the facial nerve main trunk was identified, we then carefully dissected the nerve branches starting first at the lower division and then working up to the superior division. The parotid fascia inferior to the mass was incised with the Harmonic and malleable retractors as well as Allis clamps were used to aid in retraction. We then continued to follow the upper division facial nerve branches dissecting all branches free of the mass. All the parotid tissue overlying this area was divided. In a similar fashion, we rolled the tumor off the superior division of the facial nerve and all of the branches were dissected out to the anterior aspect of the mass dividing tissue adjacent to the mass as needed. Once the mass was removed it was inspected and there was no clinical sign of transection and the capsule appeared intact. finally, the specimen was removed from the surgical field and passed off for pathologic analysis. The neck was copiously irrigated. Hemostasis was achieved. Due to the defect size the decision was made to obtain an abdominal fat graft. An ellipse of skin was included and the graft measured ~2 cm x 4 cm. This was removed with bovie cautery and taken to the head of the bed. The elliptical portion of skin was de-epithelialized leaving the deep dermis to provide structure of the graft. The fat graft was then placed in the position intact superiorly, inferiorly, and anteriorly with 3-0 Vicryl suture. This fill the volume defect in front of the face and the ear. The abdominal wound was irrigated and hemostasis wa (more content not included)... [facility] History of Present illness Narrative 03-18-2021 Note Date & Type Note Facility 03-18-2021 History of Present illness Narrative Patient had a right parotidectomy on 03/18. Postoperatively she had complete facial nerve function. On postop day 1 she noticed some slight weakness around her mouth and on postop day 2 she has some weakness around her eye. She can still close her eye. A high-dose steroid taper was sent in and she started that this morning.She states that her weakness has nearly resolved with some mild asymmetry in her smile. It completely improved almost immediately once the drain was removed and she is started on steroids. She states that on her flight back from [place] her abdominal incision started to become painful. Purulent material was expressed from the wound however it has not drained since. She is no longer have any redness or pain in the area. OV-Qoeczsdgczujaa-[facility]ov[facility]nf e Work Phone: History of Present illness Narrative 03-18-2021 Note Date & Type Note Facility 03-18-2021 History of Present illness Narrative Patient had a right parotidectomy on 03/18. Postoperatively she had complete facial nerve function. On postop day 1 she noticed some slight weakness around her mouth and on postop day 2 she has some weakness around her eye. She can still close her eye. A high-dose steroid taper was sent in which she completedShe states that her weakness has nearly resolved with some mild asymmetry in her smile. It completely improved almost immediately once the drain was removed and she is started on steroids. She states that on her flight back from [place] her abdominal incision started to become painful. Purulent material was expressed from the wound however it has not drained since. 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 There was some in the center of the tumor that were concerning for possible mucoepidermoid carcinoma. Genetic testing was sent and was negative ME-Zjphfxhdahliyc-Tdbteaw e Work Phone: History of Present illness Narrative 03-18-2021 Note Date & Type Note Facility 03-18-2021 History of Present illness Narrative Patient had a right parotidectomy on 03/18/21Final pathology was consistent with pleomorphic adenoma. There was some in the center of the tumor that were concerning for possible mucoepidermoid carcinoma. Genetic testing was sent and was negativePatient returns for follow-up. She has not had any issues since her last visit. She has regained some sensation in her ear. She is overall doing well XD-Raqpdzwejqeasm-[facility] Work Phone: Clinical Note 03-18-2021 Note Date & Type Note Facility 03-18-2021 Note History & Physical R eviewed: /Lactating: Are You no (1) Are You Currently Breastfeedingno (1) I have reviewed the History and Physical dated: 26-Feb-2021 History and Physical reviewed and relevant findings noted. Patient examined to review pertinent physical findings.: No significant changes Home Medications Reviewed: no changes noted Allergies Reviewed: no changes noted ERAS (Enhanced Recovery After Surgery): ERAS Patient: no Consent: COVID-19 Consent: COVID-19 Risk ConsentSurgeon has reviewed cardenas risks related to the risk of holly COVID-19 and if they contract COVID-19 what the risks are. Attestation: Note Completion: I am a: Resident/Fellow Attending AttestationI saw and evaluated the patient. I personally obtained the cardenas and critical portions of the history and physical exam or was physically present for cardenas and critical portions performed by the resident/fellow. I reviewed the resident/fellows documentation and discussed the patient with the resident/fellow. I agree with the resident/fellows medical decision making as documented in the note. I personally evaluated the patient [id number] Electronic Signatures: Stephanie Ahumada (Resident)) (Signed 18-Mar-2021 10:44) Authored: History & Physical Reviewed, ERAS, Consent, Note Completion Jaylan Salazar) (Signed 19-Mar-2021 02:47) Authored: Note Completion Co-Signer: History & Physical Reviewed, ERAS, Consent, Note Completion Last Updated: 19-Mar-2021 02:47 by Jaylan Salazar) References: 1. Data Referenced From Patient Profile - Preop v2 18-Mar-2021 09:02 [facility] Evaluation note Note Date & Type Note Facility Evaluation note No assessment information [facility] Work Phone: History of Present illness Narrative Note Date & Type Note Facility History of Present illness Narrative 21 year old female referred for evaluation of right parotid mass by Dr. Erickson. This was found incidentally on brain MRI. She brought in the CT scan today which was personally reviewed. This shows a right parotid mass in the posterior aspect of the gland and potentially has an extension into the deep lobe. There is no suspicious lymphadenopathy. FNA was consistent with pleomorphic adenoma. She is currently getting work-up for her syncope and has to get cleared by cardiology. She is a student from [employer] and plans to go back in mid March. BP-Pvzjlsegtqxrxf-Sqbrabhc Work Phone: Summary Purpose Family History No Family History Records FoundUnknown Family Member Name Dates Details Alive and well: Emma Sanchez er Status:Active Unknown Family Member Name Dates Details Alive and well: Emma Sanchez er Status:Active Unknown Family Member Name Dates Details Alive and well: Emma Sanchez er Status:Active Unknown Family Member Name Dates Details Alive and well: Emma Sanchez er Status:Active Unknown Family Member Name Dates Details Alive and well: Emma Sanchez er Status:Active Unknown Family Member Name Dates Details Alive and well: Emma Sanchez er Status:Active Unknown Family Member Name Dates Details Alive and well: Emma Sanchez er Status:Active Advance Directives No Advanced Directives Records Found Advance Directive Response Recorded Date/ Time Advance Directives No March 07 3:37pm Advance Directive Response Recorded Date/ Time Advance Directives No March 07 2:37pm Chief Complaint parotid massdrain removalpostopFollow-up Chief Complaint and Reason for Visit Chief Complaint k11.8 Chief Complaint z82.79 Additional Source Comments INFORMATION SOURCE (unrecogn ized section and content) DATE CREATED AUTHOR 02/16/2021 [facility] DATE CREATED AUTHOR AUTHOR'S ORGANIZ ATION 04/11/2021 [facility] DATE CREATED AUTHOR AUTHOR'S ORGANIZ ATION 04/16/2021 [facility] DATE CREATED AUTHOR AUTHOR'S ORGANIZ ATION 02/26/2022 [facility] DATE CREATED AUTHOR AUTHOR'S ORGANIZ ATION 02/28/2022 [facility] DATE CREATED AUTHOR AUTHOR'S ORGANIZ ATION 01/11/2023 [facility] Care Teams (unrecognized sec tion and content) Team Status: Inactive Member Role Status Dates Sg Bower DO Primary Care Provider Active Jaylan Salazar MD Attending Provider Active Team Status: Active Member Role Status Dates Sg Bower DO Primary Care Provider Active Team Status: Inactive Member Role Status Dates Sg Bower DO Primary Care Provider Active Derrick Kimbrough MD Attending Provider Active Goals (unrecognized section and content) Goals may be documented in a n alternate sectionGoals may be documented in an alternate section FOR RECORDS PERTAINING TO PATIENTS WHO ARE OR HAVE BEEN ENROLLED IN A CHEMICAL DEPENDENCY/SUBSTANCEABUSE PROGRAM, SOME INFORMATION MAY BE OMITTED. This clinical summary was aggregated from multiple sources. Caution should be exercised in using it in the provision of clinical care. This summary normalizes information from multiple sources, and as a consequence, information in this document may materially change the coding, format and clinical context of patient data. In addition, data may be omitted in some cases. CLINICAL DECISIONS SHOULD BE BASED ON THE PRIMARY CLINICAL RECORDS. [employer] [facility] provides no warranty or guarantee of the accuracy or completeness of information in this document.
[2023-08-22 15:08] LABS: Age Gdln ACOG Testing Note (.); IGP, rfx Aptima HPV ASCU Note (.)
== END 2023-08-16 21:48 | disposition home or self-care (01) ==
LOC: LAB 21:47
PROVIDERS: Visit Provider Physician Assistant
DX: Z01.419 Encounter for gynecological examination (general) (routine) without abnormal findings (principal)
CPT/HCPCS: G0145

== ENCOUNTER 2024-10-02 19:59 | Outpatient (REF) | payer OTHER, SELFPAY ==
--- OUTSIDE RECORDS SUMMARY | 2024-10-02 20:04 | XMS_ITS | CCD ---
Author Organization [facility] Care Team Providers Care Mica Plate Layer Name Role Phone GEORGINA, DR SUMNER Admitting Unavailable TIMMIS, DR SUMNER Attending Unavailable TIMMIS, DR SUMNER Consulting Unavailable ZIEBER, DR DAGOBERTO Mcclain Consulting Unavailable TIMMIS, DR SUMNER Attending Unavailable TIMMIS, DR SUMNER Consulting Unavailable TIMMIS, DR SUMNER Admitting Unavailable WEST, DR JEANETTE Sy Consulting Unavailable Elizabeth Boweran E Unavailable Unavailable Unavailable SHANTELLE MAE Attending Unavailable SELF, SELF Referring Unavailable DO Sg Bower Primary Care Provider [phone] MD Jaylan Salazar Attending Provider DO Sg Bower Primary Care Provider MD Derrick Kimbrough Attending Provider [phone] Jaylan Salazar Admitting Unavailable Jaylan Salazar Attending Unavailable Sg Bower Primary Care Unavailable Sg Bower Primary Care Unavailable Derrick Kimbrough Admitting Unavailable Derrick Kimbrough Attending Unavailable Allergies Allergy Classification Reported Allergen(s) Allergy Type Date of Onset Reaction(s) Facility Pollen (5 sources) bee pollen Substance Allergy [facility] Work Phone: (2 sources) bee pollen Allergy to substance (finding) [facility]Otolaryngol artandseeky[facility] Work Phone: (1 source) Unable to Assess Drug allergy (disorder) 01-11-2021 [facility] Repository Medications Completed/Discontinued Medications Medication Drug Class(es) [...] Analys cherri 09-01-2022 Chromosome Leuk Blood Normal [facility] Comment on above: Order Comment: Reaso n for Exam Family history of chromosomal abnormality Result Comment: See report. Scanned copy available in EMR. PERFORMED BY: [place] [address] PATHOLOGIST CERTIFIED SURGICAL TECH/FIRST ASSISTANT MIMI SERRANO M.D. Performed By: #### C HROM LEUK #### [facility] , CT soft tissue neck w conon 03-07-2022 CT soft tissue neck w con [facility] [place] [address] CT Scan Report Signed Patient: Divya Garay MR#: [id number] 1 : 2000 Acct:[id number] Age/Sex: 22 / F ADM Date: 03/07/22 Loc: CT Room: Type: [facility] Attending Dr: Jaylan Salazar MD Copies to: [...] Warren Julian M.D.03/07/2022 4:13 PM Dictation Location: [place] [address] Transcribed By: [facility] 03/07/22 1613 Dictated By: Warren Julian DO 03/07/22 1609 Signed By: 03/07/22 1613 [facility] Established Visit (Otolaryng ology)on 02-25-2022 Established Visit (Otolaryngology) Diagnoses/Problems Parotid mass (527.8) (K11.8) Orders Blood Urea Nitrogen, Serum; Status:Active; Requested for:[id number]; Creatinine, Serum; Status:Active; Requested for:[id number]; CT Neck with Contrast; Status:Hold For - Scheduling; Requested for:[id number]; Patient taking Metformin or Derivatives? : Unknown [...] [facility] Oral Tablet Vitals Vital Signs Recorded: 07Rsw1621 04:15PM Mzfmbpbfstc28.9 F Height5 ft 8 in Cmkenb472 lb 8 oz BMI Qitetxunfn25.32 kg/m2 BSA Calculated1.89 Tobacco Useb) No Falls [...] Feb 28 2022 6:31AM EST (Author) Normal [employer] Tobacco Screening.on 022 Fall risk assessment b) One or more falls in the last year [facility] Work Phone: Tobacco use status CPHS b) No [facility]-Otolaryngo logy[facility] Work Phone: Established Visit (Otolaryng ology)on 04-09-2021 [...] states that on her flight back from [place] her abdominal incision started to become painful. [...] [facility] Oral Tablet Vitals Vital Signs Recorded: 01Pnh5437 04:44PM Rxlxiafkuuc91.6 F Height5 ft 8 in 2-20 Stature Kbefxlpugw82 % Shstwj910 lb 2-20 Weight Pewvopdnjx60 % BMI Ggvaubtoud34.87 kg/m2 BMI Xbzkcdjrbb16 % BSA Calculated1.84 Tobacco Useb) No Fall Screeninga) No falls within the last year Pain Scale0/10 Physical Exam incision well approximated, no sign of infection ubtle marginal mandibular nerve weakness Abdominal incision without erythema or evidence of fluid collection, healing appropriately Results/Data Surgical Futgqdwjj99Mpb5909 01:46PMJaylan Salazar Test NameResultFlagReference Case Surgical Pathology(Report) Name DIVYA GARAY Pathologist: FERN BLACK MD Date of Procedure: 03/18/2021 Date Received: 03/18/2021 Date Reported 04/08/2021 Submitting Physician: JAYLAN SALZAAR MD Location: Other External # FINAL DIAGNOSIS RIGHT PAROTID MASS, PAROTIDECTOMY: --PLEOMORPHIC ADENOMA. SEE NOTE. --1 LYMPH NODE WITH NO EVIDENCE OF MALIGNANCY. 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 Because of this finding, the specimen was sent to [facility] for MAML2 translocation testing by FISH. Per their report (on file in the [facility] Department of Pathology), MAML2 FISH studies [...] Pena MD. Electronically Signed Out By FERN BLAKC MD/KENN By the signature on this report, the individual or group listed as making the Final Interpretatio (more content not included)... Normal [employer] Tobacco Screening.on 021 Fall risk assessment a) No falls within the last year [facility] Work Phone: Tobacco use status CPHS b) No [facility] Work Phone: Established Visit (Otolaryng ology)on 03-21-2021 [...] GRAN 0.2 % Normal 0.0 - 0.9 [facility] Comment on above: Result Comment: Luanne ture Granulocyte Count (IG) includes promyelocytes, myelocytes and metamyelocytes but does not include bands. Percent differential counts (%) should be interpreted in the context of the absolute cell counts (cells/L). Performed By: #### C BCDF #### [address] [place] [address] Basophils (Bld) [#/Vol] 0.02 10*3/uL Normal 0.00 - 0.10 [facility] Comment on above: Performed By: #### C BCDF #### [address] [place] [address] Basophils/100 WBC (Bld) 0.3 % Normal 0.0 - 2.0 [facility] Comment on above: Performed By: #### C BCDF #### [address] [address] Eosinophils (Bld) [#/Vol] 0.09 10*3/uL Normal 0.00 - 0.70 [facility] Comment on above: Performed By: #### C BCDF #### [address] [address] Eosinophils/100 WBC (Bld) 1.5 % Normal 0.0 - 6.0 [facility] Comment on above: Performed By: #### C BCDF #### [address] [address] Erythrocyte distribution width (RBC) [Ratio] 12.7 % Normal 11.5 - 14.5 [facility] Comment on above: Performed By: #### C BCDF #### [address] [address] Hematocrit (Bld) [Volume fraction] 38.8 % Normal 36.0 - 46.0 [facility] Comment on above: Performed By: #### C BCDF #### [address] [address] Hemoglobin (Bld) [Mass/Vol] 12.8 g/dL Normal 12.0 - 16.0 [facility] Comment on above: Performed By: #### C BCDF #### [address] [address] Lymphocytes (Bld) [#/Vol] 2.13 10*3/uL Normal 1.20 - 4.80 [facility] Comment on above: Performed By: #### C BCDF #### [address] [address] Lymphocytes/100 WBC (Bld) 35.6 % Normal 13.0 - 44.0 [facility] Comment on above: Performed By: #### C BCDF #### [address] [address] MCHC (RBC) [Mass/Vol] 33.0 g/dL Normal 32.0 - 36.0 [facility] Comment on above: Performed By: #### C BCDF #### [address] [address] MCV (RBC) [Entitic vol] 90 fL Normal 80 - 100 [facility] Comment on above: Performed By: #### C BCDF #### [address] [address] Monocytes (Bld) [#/Vol] 0.72 10*3/uL Normal 0.10 - 1.00 [facility] Comment on above: Performed By: #### C BCDF #### [address] [address] Monocytes/100 WBC (Bld) 12.0 % Normal 2.0 - 10.0 [facility] Comment on above: Performed By: #### C BCDF #### [address] [address] Neutrophils (Bld) [#/Vol] 3.01 10*3/uL Normal 1.20 - 7.70 [facility] Comment on above: Performed By: #### C BCDF #### [address] [address] Neutrophils/100 WBC (Bld) 50.4 % Normal 40.0 - 80.0 [facility] Comment on above: Performed By: #### C BCDF #### [address] [address] NUCLEATED RBC 0.0 /100 WBC Normal 0.0 - 0.0 [facility] Comment on above: Performed By: #### C BCDF #### [address] [address] Platelets (Bld) [#/Vol] 306 10*3/uL Normal 150 - 450 [facility] Comment on above: Performed By: #### C BCDF #### [address] [address] RBC 4.31 x10E12/L Normal 4.00 - 5.20 [facility] Comment on above: Performed By: #### C BCDF #### [address] [address] WBC (Bld) [#/Vol] 6.0 10*3/uL Normal 4.4 - 11.3 [facility] Comment on above: Performed By: #### C BCDF #### [address] [address] COMPREHENSIVE PANELon 2020 Albumin [Mass/Vol] 4.2 g/dL Normal 3.4 - 5.0 [facility] Comment on above: Performed By: #### C MP #### [address] [address] ALP [Catalytic activity/Vol] 72 U/L Normal 33 - 110 [facility] Comment on above: Performed By: #### C MP #### [address] [address] ALT [Catalytic activity/Vol] 7 U/L Normal 7 - 45 [facility] Comment on above: Result Comment: Loretta ents treated with Sulfasalazine may generate falsely decreased results for ALT. Performed By: #### C MP #### [address] [address] Anion gap [Moles/Vol] 10 mmol/L Normal 10 - 20 [facility] Comment on above: Performed By: #### C MP #### [address] [address] AST [Catalytic activity/Vol] 12 U/L Normal 9 - 39 [facility] Comment on above: Performed By: #### C MP #### [address] [address] Bilirubin [Mass/Vol] 0.4 mg/dL Normal 0.0 - 1.2 [facility] Comment on above: Performed By: #### C MP #### [address] [address] Calcium [Mass/Vol] 9.5 mg/dL Normal 8.6 - 10.3 [facility] Comment on above: Performed By: #### C MP #### [address] [place] [address] Chloride [Moles/Vol] 104 mmol/L Normal 98 - 107 [facility] Comment on above: Performed By: #### C MP #### [address] [place] [address] Creatinine [Mass/Vol] 0.76 mg/dL Normal 0.50 - 1.05 [facility] Comment on above: Performed By: #### C MP #### [address] [place] [address] GFR- AM. >60 Normal >60 [facility] Comment on above: Result Comment: CALC ULATIONS OF ESTIMATED GFR ARE PERFORMED USING THE MDRD STUDY EQUATION FOR THE IDMS-TRACEABLE CREATININE METHODS. CLIN CHEM 2007;53:766-72 Performed By: #### C MP #### [address] [address] GFR-NON AM. >60 Normal >60 [facility] Comment on above: Performed By: #### C MP #### [address] [address] Glucose [Mass/Vol] 92 mg/dL Normal 74 - 99 [facility] Comment on above: Performed By: #### C MP #### [address] [place] [address] HCO3 (Bld) [Moles/Vol] 28 mmol/L Normal 21 - 32 [facility] Comment on above: Performed By: #### C MP #### [address] [address] Potassium [Moles/Vol] 4.1 mmol/L Normal 3.5 - 5.3 [facility] Comment on above: Performed By: #### C MP #### [address] [place] [address] Protein [Mass/Vol] 6.8 g/dL Normal 6.4 - 8.2 [facility] Comment on above: Performed By: #### C MP #### [facility] [address] [place] [address] Sodium [Moles/Vol] 138 mmol/L Normal 136 - 145 [facility] Comment on above: Performed By: #### C MP #### [address] [place] [address] Urea nitrogen [Mass/Vol] 15 mg/dL Normal 6 - 23 [facility] Comment on above: Performed By: #### C MP #### [address] [place] [address] Complete Blood Count + Diffe sourav 03-18-2021 Basophils/100 WBC (Bld) 0.3 % 0.0 - 2.0 [employer] Work Phone: Erythrocyte distribution width (RBC) [Ratio] 12.7 % See Below [employer] Work Phone: Comment on above: Reference Range: 11. 5 - 14.5 Hematocrit (Bld) [Volume fraction] 38.8 % See Below [employer] Work Phone: Comment on above: Reference Range: 36. 0 - 46.0 Hemoglobin (Bld) [Mass/Vol] 12.8 g/dL See Below [employer] [employer] Work Phone: Comment on above: Reference Range: 12. 0 - 16.0 Lymphocytes/100 WBC (Bld) 35.6 % See Below [employer] Work Phone: Comment on above: Reference Range: 13. 0 - 44.0 MCHC (RBC) [Mass/Vol] 33.0 g/dL See Below [employer] Work Phone: Comment on above: Reference Range: 32. 0 - 36.0 MCV (RBC) [Entitic vol] 90 fL 80 - 100 [employer] Work Phone: Monocytes/100 WBC (Bld) 12.0 % 2.0 - 10.0 [facility] Work Phone: Neutrophils/100 WBC (Bld) 50.4 % See Below [facility] Work Phone: Comment on above: Reference Range: 40. 0 - 80.0 Platelets (Bld) [#/Vol] 306 10*3/uL 150 - 450 [facility] Work Phone: RBC (Bld) [#/Vol] 4.31 {x10E12/L} See Below [facility] Work Phone: Comment on above: Reference Range: 4.0 0 - 5.20 WBC (Bld) [#/Vol] 6.0 10*3/uL 4.4 - 11.3 [facility]ul laryngo [facility] Work Phone: Complete Blood Count + Differential 0.02 {x10E9/L} See Below [facility] Work Phone: Comment on above: Reference Range: 0.0 0 - 0.10 Complete Blood Count + Differential 0.09 {x10E9/L} See Below [facility] Work Phone: Comment on above: Reference Range: 0.0 0 - 0.70 Complete Blood Count + Differential 0.72 {x10E9/L} See Below [facility] Work Phone: Comment on above: Reference Range: 0.1 0 - 1.00 Complete Blood Count + Differential 2.13 {x10E9/L} See Below [facility] Work Phone: Comment on above: Reference Range: 1.2 0 - 4.80 Complete Blood Count + Differential 3.01 {x10E9/L} See Below [facility] Work Phone: Comment on above: Reference Range: 1.2 0 - 7.70 Complete Blood Count + Differential 1.5 % 0.0 - 6.0 [facility] Work Phone: Complete Blood Count + Differential 0.2 % 0.0 - 0.9 [facility] Work Phone: Comment on above: Immature Granulocyte Count (IG) includes promyelocytes, myelocytes and metamyelocytes but does not include bands. Percent differential counts (%) should be interpreted in the context of the absolute cell counts (cells/L). Complete Blood Count + Differential 0.0 {/100_WBC} 0.0 - 0.0 [facility] Work Phone: HCG,URINEon 03-18-2021 Beta HCG ( test) Ql (U) Negative Normal Negative [facility] Comment on above: Performed By: #### H CGU #### [facility] [address] [place] [address] Laboratory - Chemistry and C hemistry - challengeon 03-18-2021 Albumin BCP dye [Mass/Vol] 4.2 g/dL 3.4 - 5.0 [facility] Work Phone: ALP [Catalytic activity/Vol] 72 U/L 33 - 110 [employer] Work Phone: ALT With P-5'-P [Catalytic activity/Vol] 7 U/L 7 - 45 [facility] Work Phone: Comment on above: Patients treated wit h Sulfasalazine may generate falsely decreased results for ALT. Anion gap [Moles/Vol] 10 mmol/L 10 - 20 [facility] Work Phone: AST With P-5'-P [Catalytic activity/Vol] 12 U/L 9 - 39 [facility] Work Phone: Bilirubin [Mass/Vol] 0.4 mg/dL 0.0 - 1.2 [facility] Work Phone: [phone] Calcium [Mass/Vol] 9.5 mg/dL 8.6 - 10.3 [facility] laryngo [facility] Work Phone: [phone] Chloride [Moles/Vol] 104 mmol/L 98 - 107 [facility] Work Phone: [phone] CO2 [Moles/Vol] 28 mmol/L 21 - 32 [facility] y[facility]o [facility] Work Phone: [phone] Creatinine [Mass/Vol] 0.76 mg/dL See Below [facility] Work Phone: Comment on above: Reference Range: 0.5 0 - 1.05 Glucose [Mass/Vol] 92 mg/dL 74 - 99 [facility] l[facility] Work Phone: Potassium [Moles/Vol] 4.1 mmol/L 3.5 - 5.3 [facility]o [facility] Work Phone: [phone] Protein [Mass/Vol] 6.8 g/dL 6.4 - 8.2 [facility] laryngo [facility] Work Phone: [phone] Sodium [Moles/Vol] 138 mmol/L 136 - 145 [facility] laryngo [facility] Work Phone: Urea nitrogen [Mass/Vol] 15 mg/dL 6 - 23 [facility] Work Phone: [phone] No Panel Informationon 03-18 [facility] Work Phone: [phone] >60 >60 [facility] Work Phone: [phone] Comment on above: CALCULATIONS OF CHRIS MATED [...] be shared with your follow-up providers (doctor, footwear machinery instructor, physical therapist, etc.). Follow Up with Dr. Salazar in We will call you to schedule your follow up for drain removal. Keflex 500 mg oral capsule 1 cap(s) orally 3 times a day May not drive or operate motor vehicles for 24 hours or while taking narcotics May not return to (more content not included)... Normal [facility] Patient Profile - Preop v2on 03-18-2021 Patient Profile - Preop v2 Profile: Initial Info: How to be Addressedkarlie Spoken Language PreferredEnglish Source of Informationpatient Stated Reason for Admissionright parotoidectomy Primary Contact Name and Numbersara [phone] Limitations on Visitors/Phone Callsnone Patient Belongingsnone Medications Brought to Hospitalno General Health: Weight in kg70 kilogram(s) Weight in xxq475.3 pound(s) Weight Methodstated Height in feet5 feet [...] Arrangementshouse Lives Withparent(s) Resource/Environmental Concernsnone Anticipated Transition [place] [facility] Anticipated at Transitionnone Substance: Smoking Statusnever [...] Learning Preferencesverbal instruction Cultural Considerationsnone Developmental Considerationsnone Sabianist Considerationsnone Other learner availableno Falls RiskPatient location auto qualifies him/her for HIGH RISK. Are there any cultural, spiritual, jehovah's witness practices/values/needs that are important for us to knowno Do you want a visit/item from Pastoral [facility] Would you like your Fire Hydrant Mechanic/Public Relations Assistant notifiedno Pain Scalenumerical 0-10 Pain Scale Educationteaching [...] 18-Mar-2021 09:20 by Silke Marquez (STAFF N) [facility] Preop Checkliston 03-18-2021 Preop Checklist Preop Checklist: Preop Checklist: Arrival [id number] Arrival Time08:40 Procedure Typeright parotidectomy NPO [id number] 23:00 ID Band Onyes Allergy Bandno known allergies Consent Signedyes H&P Completeyes Anesthesia Assessment Completedpending EKG Performedyes Chest X-Ray Performednot ordered HCG Urine TestUrine Sent Chlorhexadine Bath Givennot applicable Nasal Antiseptic Appliednot applicable Hair Washedyes Soap and water bath with hair shampoo the night before surgeryyes Hat placed on infant prior to transportnot applicable SCD's Appliedyes HARLAN [...] 09:22 by Silke Marquez (STAFF N) [facility] Surgical Pathology Depar tmenton 03-18-2021 [facility] Surgical Pathology Department Name DIVYA GARAY [...] this finding, the specimen was sent to [facility] for MAML2 translocation testing by FISH. Per their report (on file in the [facility] Department of Pathology), MAML2 FISH studies [...] this case. Clinical History: Physician Contact Number: [id number] Fixative (A): Formalin Clinical Diagnosis History K11.8 [...] entirely submitted in 13 cassettes. JDC/MY jdc/03/19/2021 [facility] Department of Pathology [address] [place] [address] Normal [facility] Comment on above: Performed By: #### [facility] #### [facility] Surgical Pathology Department [address] [place] [address] Urine Teston 03-18 HCG ( test) Ql (U) Negative Negative -Otolaryngo [facility] Work Phone: CORONAVIRUS 2019, SCREEN ASY MPTOMATICon 03-16-2021 SARS-CoV-2 (COVID-19) RNA OVIDIO+probe Ql (Unsp spec) Not detected Normal Not Detected [facility] Comment on above: Result Comment: [...] patient management decisions. Fact sheet for providers: https://www.fda.gov/media/566801/download Fact sheet for patients: https://www.fda.gov/media/278635/download This test has received FDA Emergency Use Authorization (EUA) and has been verified by [facility] ([facility]). This test is only authorized for the duration of time that circumstances exist to justify the authorization of the emergency use of in vitro diagnostic tests for the detection of SARS-CoV-2 virus and/or diagnosis of COVID-19 infection under section 564(b)(1) of the Act, 21 U.S.C. 360bbb-3(b)(1), unless the authorization is terminated or revoked sooner. [facility] is certified under CLIA-88 as qualified to perform high complexity testing. Testing is performed in the [facility] laboratories located at [address] [place] [address]. Performed By: #### C OVSC #### [address] [place] [address] Covid 19 Resultson 1 SARS-CoV-2 (COVID-19) RNA [...] You may also be contacted by the [facility] to see if any of your close [...] or Naproxen (Aleve) can also be used. Ojax-yxj-wgpdpnc cough and cold medicines can be used according to the instructions on the package. Some zpmv-glw-hkatkfz medicines also contain acetaminophen. Make sure you [...] water are not available, use alcohol-based hand hydraulic spinner. Avoid touching your eyes, nose, and mouth [...] 24 rosy (more content not included)... Normal [facility] CORONAVIRUS 2019, SCREEN ASY MPTOMATICon 03-15-2021 Lab Specimen Source Nasal, Nasopharyngeal Normal [facility] Comment on above: Performed By: #### C OVSC #### [facility] [address] [place] [address] Coronavirus 2019 RNA by PCR, Screening Asymptomticon 03-15-2021 Coronavirus 2019 RNA by PCR, Screening Asymptomtic Not detected Normal See Below [facility] Work Phone: Comment on above: SOURCE: Nasal, [...] make patient management decisions.Fact sheet for providers: https://www.fda.gov/media/587899/downloadFact sheet for patients: https://www.fda.gov/media/563494/downloadThis test has received FDA Emergency Use Authorization (EUA) and has been verified by [facility] ([facility]). This test is only authorized for the duration of time that circumstances exist to justify the authorization of the emergency use of in vitro diagnostic tests for the detection of SARS-CoV-2 virus and/or diagnosis of COVID-19 infection under section 564(b)(1) of the Act, 21 U.S.C. 360bbb-3(b)(1), unless the authorization is terminated or revoked sooner. [facility] is certified under CLIA-88 as qualified to perform high complexity testing. Testing is performed in the [facility] laboratories located at [address] [place] [address]. Tobacco Screening.on 021 Fall risk assessment a) No falls within the last year [facility] Work Phone: Tobacco use status CPHS b) No [facility] Work Phone: US FINE NEEDLE ASP EXPon US FINE NEEDLE ASP EXP Begin Addendum #1 COLLECTED DATE/TIME: 02/09/2021 08:58 EDT Final Diagnosis Report for [facility] [place] (A/B) RIGHT PAROTID MASS; FINE NEEDLE [...] (FNA). 2. Pathology results are pending. Normal [facility] CT NECK ST W CONon [...] by: JEANETTE SOLARES Date: 2021-02-02 16:48 Normal [facility] [place] US ST HEAD_NECKon 02-02-[address] HEAD_NECK [...] by: JEANETTE SOLARES Date: 2021-02-02 15:06 Normal [facility] [place] Vital Signs Date Time Vital Sign Value Performing Clinician Facility 02-25-2022 16:15-0400 Body height 172.72 cm [facility] Joesph Bower Work Phone: [facility] Work Phone: 02-25-2022 16:15-0400 Body mass index (BMI) [Ratio] 25.32 kg/m2 Sg Joesph Sathish Work Phone: [facility] Work Phone: 02-25-2022 16:15-0400 Body surface area Derived from formula 1.89 m2 Bolivardavid Bower Work Phone: [facility] Work Phone: 02-25-2022 16:15-0400 Body temperature 98.9 [degF] Sg Bower Work Phone: [facility] Work Phone: 02-25-2022 16:15-0400 Body weight 75.52 kg Sg Bower Work Phone: [facility] Work Phone: 02-25-2022 16:15-0400 0 1 Sg Bower Work Phone: [facility] Work Phone: Comment on above: Pain[employer] 04-09-2021 16:44-0400 Body height 172.72 cm Sg Bower Work Phone: [facility] Work Phone: 04-09-2021 16:44-0400 Body mass index (BMI) [Ratio] 23.87 kg/m2 Sg Bower Work Phone: [facility] Work Phone: 04-09-2021 16:44-0400 Body surface area Derived from formula 1.84 m2 Sg Bower Work Phone: [facility] Work Phone: 04-09-2021 16:44-0400 Body temperature 97.6 [degF] Sg Bower Work Phone: [facility] Work Phone: 04-09-2021 16:44-0400 Body weight 71.22 kg Sg Bower Work Phone: [facility] Work Phone: 04-09-2021 16:44-0400 92 1 Sg Bower Work Phone: [facility] Work Phone: Comment on above: 2-20_SPerc 04-09-2021 16:44-0400 86 1 Sg Bower Work Phone: [facility] Work Phone: Comment on above: 2-20_WPerc 04-09-2021 16:44-0400 72 1 Sg Bower Work Phone: [facility] Work Phone: Comment on above: BMIPerc 04-09-2021 16:44-0400 0 1 Sg Bower Work Phone: [facility] Work Phone: Comment on above: PainScale 02-26-2021 15:22-0400 Body height 172.72 cm Sg Bower Work Phone: [facility] Work Phone: 02-26-2021 15:22-0400 Body mass index (BMI) [Ratio] 24.02 kg/m2 Sg Bower Work Phone: [facility] Work Phone: 02-26-2021 15:22-0400 Body surface area Derived from formula 1.85 m2 Sg Bower Work Phone: [facility] Work Phone: 02-26-2021 15:22-0400 Body temperature 97.1 [degF] Sg Bower Work Phone: [facility] Work Phone: 02-26-2021 15:22-0400 Body weight 71.67 kg Sg Bower Work Phone: [facility] Work Phone: 02-26-2021 15:22-0400 93 1 Sg Bower Work Phone: [facility] Work Phone: Comment on above: 2-20_SPerc 02-26-2021 15:22-0400 87 1 Sg Bower Work Phone: [facility] Work Phone: Comment on above: 2-20_WPerc 02-26-2021 15:22-0400 74 1 Sg Bower Work Phone: [facility] Work Phone: Comment on above: BMIPerc 02-26-2021 15: 0 1 Sg Bower Work Phone: [facility] Work Phone: Comment on above: PainScale Encounters Encounter Date Encounter Type Care Provider Facility Start: 09-01-2022 End: 09-01-2022 ambulatory Sg Bower Facility:[facility] Start: 09-01-2022 End: 09-01-2022 ambulatory DO Sg Bower Work Phone: [facility] Work Phone: Start: 09-01-2022 End: 09-01-2022 Patient encounter procedure DO Sg Bower Work Phone: [facility] [place] Work Phone: Start: 03-07-2022 End: 03-07-2022 ambulatory Jaylan Salazar Facility:[facility] Start: 03-07-2022 End: 03-07-2022 Patient encounter procedure DO gS Bower Work Phone: [facility]-CT Scan [facility] [place] Start: 02-25-2022 Office outpatient vi sit 15 minutes Sg Bower Work Phone: BG[facility]hqfuh[facility] [place] Work Phone: Start: 02-25-2022 Patient encounter procedure Sg Bower Work Phone: JA-Akjspuvjlgvvgx[facility] Work Phone: Start: 04-14-2021 ambulatory SHANTELLE MAE [facility] ity:[facility] Start: 04-09-2021 Patient encounter procedure Sg Bower Work Phone: ZG-Plktdcqgdobozr-[place] [place] Work Phone: Start: 04-09-2021 Postop follow up vis it related to original px Sg Bower Work Phone: TO-Slusevwheppojp[facility] Work Phone: Start: 03-20-2021 AUDIT Bolivardavid Lafleur ol Work Phone: DN-Akwngqavuvpnjd-[place]aj [place] Work Phone: Start: 03-18-2021 [facility], Provider: Jaylan Salazar, Status: Pen, Time: 11:00 AM Sg Bower Work Phone: LC-Cdsijzuflyxjxg-[place]q [place] Work Phone: Start: 03-17-2021 Chart Update Sg E Miquel ol Work Phone: SY-Hhgjppestamjhe-[place]ke [place] Work Phone: Start: 02-26-2021 Office consultation new/estab patient 60 min Sg Bower Work Phone: GW-Vhbhysjkbhejpk-[place]n [place] Work Phone: Start: 02-09-2021 End: 02-09-[address] BURAK ERICKSON Facility:[facility] Start: 02-02-2021 End: 02-03-[address] BURAK ERICKSON Facility: Procedures Date Procedure Procedure Detail Performing Clinician Start: 03-07-2022 CT of soft tissues o f neck with contrast DO Sg Bower Work Phone: No history of surgery Sg Bower Work Phone: Plan of Treatment Date Care Activity Detail Author Start: 03-25-2022 [facility], Provider: Jaylan Salazar, Status: Pen, Time: 4:30 PM [facility], Provider: Jaylan Salazar, Status: Pen, Time: 4:30 PM JZ-Hpyauwtluenuuj-[place]kh [place] Work Phone: Karyotype [Identifie r] in Unspecified specimen [facility] Payers Date Payer Category Payer Unknown [id number] 2022 Self-pay [id number] 2020 Unknown [id number] 2002 Unknown [id number] 2002 Unknown [id number] 1979 Unknown [id number] 1959 Unknown [id number] Private Health Insurance [employer] [facility] [id number] Unknown [employer] Unknown [id number] Unknown [id number] Social History Date Type Detail Facility Employed [facility]ed [facility] Work Phone: Start: 2002 Sex Assigned At Female F [facility] Clinical Note 03-18-2021 Note Date & Type Note Facility 03-18-2021 Note Post Operative Note: PreOp Diagnosis: right parotid mass Post-Procedure Diagnosis: same Procedure: 1. Right superficial parotidectomy with nerve monitoring 2. Abdominal fat graft Surgeon: Jaylan Salazar MD Resident/Fellow/Other Tool Builder: Stephanie Ahumada MD Anesthesia: General Estimated Blood [...] and hemostasis wa (more content not included)... [facility] History of Present illness Narrative 03-18-2021 Note [...] states that on her flight back from [place] her abdominal incision started to become painful. Purulent material was expressed from the wound however it has not drained since. She is no longer have any redness or pain in the area. IB-Hignsmwetbxvlh-Ovcdvzm e Work Phone: History of Present illness [...] states that on her flight back from [place] her abdominal incision started to become painful. Purulent material was expressed from the wound however it has not drained since. 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 There was some in the center of the tumor that were concerning for possible mucoepidermoid carcinoma. Genetic testing was sent and was negative XR-Chqrvmawixcllr-Pwizpyp e Work Phone: History of Present illness [...] her ear. She is overall doing well GL-Pbezolzviozulk-[place] Work Phone: Clinical Note 03-18-2021 Note Date [...] the note. I personally evaluated the patient [id number] Electronic Signatures: Stephanie Ahumada (Resident)) (Signed 18-Mar-2021 10:44) Authored: History & Physical Reviewed, ERAS, Consent, Note Completion Jaylan Salazar) (Signed 19-Mar-2021 02:47) Authored: Note Completion Co-Signer: History & Physical Reviewed, ERAS, Consent, Note Completion Last Updated: 19-Mar-2021 02:47 by Jaylan Salazar) References: 1. Data Referenced From Patient Profile - Preop v2 18-Mar-2021 09:02 [facility] Evaluation note Note Date & Type Note Facility Evaluation note No assessment information [facility] Work Phone: History of Present illness [...] by cardiology. She is a student from [employer] and plans to go back in mid March. HU-Aivoqpbtuaqxlu-Oygpzeoh Work Phone: Summary Purpose Family History No Family History Records FoundUnknown Family Member Name Dates Details Alive and well: Mother, Fath er Status:Active Unknown Family Member Name Dates [...] and content) DATE CREATED AUTHOR 02/16/2021 [facility] DATE CREATED AUTHOR AUTHOR'S ORGANIZ ATION 04/11/2021 [facility] DATE CREATED AUTHOR AUTHOR'S ORGANIZ ATION 04/16/2021 [facility] DATE CREATED AUTHOR AUTHOR'S ORGANIZ ATION 02/26/2022 [facility] DATE CREATED AUTHOR AUTHOR'S ORGANIZ ATION 02/28/2022 [employer] DATE CREATED AUTHOR AUTHOR'S ORGANIZ ATION 01/11/2023 [facility] Care Teams (unrecognized sec tion and content) [...] BE BASED ON THE PRIMARY CLINICAL RECORDS. [employer] [facility]. provides no warranty or guarantee of the accuracy or completeness of information in this document.
[2024-10-09 10:08] LABS: Age Gdln ACOG Testing Note (.); IGP, rfx Aptima HPV ASCU Note (.)
== END 2024-10-02 20:00 | disposition home or self-care (01) ==
LOC: LAB 19:59
PROVIDERS: Visit Provider Physician Assistant
DX: Z01.419 Encounter for gynecological examination (general) (routine) without abnormal findings (principal)
CPT/HCPCS: 88175